=== PATIENT | female | born 1955 | race Caucasian/White ===

== ENCOUNTER 2016-05-30 12:09 | Observation (INO) | payer BC, OTHER ==
--- NOTE | 2016-05-30 13:07 | ED ---
Alcohol HPI - General Chief Complaint: Alcohol Stated Complaint: ETOH Time Seen by Provider: 05/30/16 12:52 Source: patient, family Mode of arrival: ambulatory Limitations: no limitations - History of Present Illness Initial Comments: 61-year-old female patient is brought to emergency department today by her daughter for alcohol intoxication. Patient states that her daughter is concerned because she has been drinking more heavily since . Patient states she has a history of alcohol dependence, but went through treatment about a year ago at [facility]. Patient states that she has increased her drinking because she is upset about her daughter's relationship, and believes her daughter is being manipulated by her boyfriend. Patient denies any suicidal or homicidal ideation. She denies any illicit drug use. Eyes any physical symptoms. She denies headache, dizziness, weakness, chest pain, back pain, abdominal pain, nausea, vomiting, constipation, diarrhea, hematuria, dysuria, urinary urgency or frequency. Patient refuses labs and IV fluids at this time. She does not feel that she needs to be seen and would like to go home. - Related Data Home Medications Medication Instructions Recorded Confirmed Acetaminophen [Tylenol] 325 mg PO Q4H 05/30/16 05/30/16 Multivitamins, Thera [Multivitamin 1 tab PO DAILY 05/30/16 05/30/16 (formulary)] Allergies Allergy/AdvReac Type Severity Reaction Status Date / Time meperidine [From Demerol] Allergy Nausea Verified 05/30/16 13:24 Review of Systems ROS Statement: Those systems with pertinent positive or pertinent negative responses have been documented in the HPI. ROS Other: All systems not noted in ROS Statement are negative. Past Medical History Past Medical History: No Reported History History of Any Multi-Drug Resistant Organisms: None Reported Past Surgical History: No Surgical Hx Reported Past Psychological History: Anxiety, Bipolar, Depression, Panic Disorder Smoking Status: Current every day smoker Past Alcohol Use History: Abuse, Daily, Heavy Past Drug Use History: None Reported General Exam Limitations: no limitations General appearance: alert, in no apparent distress Eye exam: Present: normal appearance, PERRL, EOMI. Absent: scleral icterus, conjunctival injection, periorbital swelling ENT exam: Present: normal exam, normal oropharynx, mucous membranes moist Neck exam: Present: normal inspection. Absent: tenderness, meningismus, lymphadenopathy Respiratory exam: Present: normal lung sounds bilaterally. Absent: respiratory distress, wheezes, rales, rhonchi, stridor Cardiovascular Exam: Present: regular rate, normal rhythm, normal heart sounds. Absent: systolic murmur, diastolic murmur, rubs, gallop, clicks GI/Abdominal exam: Present: soft, normal bowel sounds. Absent: distended, tenderness, guarding, rebound, rigid Extremities exam: Present: normal inspection, full ROM, normal capillary refill. Absent: tenderness, pedal edema, joint swelling, calf tenderness Back exam: Present: normal inspection Neurological exam: Present: alert, oriented X3, CN II-XII intact Psychiatric exam: Present: normal affect, normal mood Skin exam: Present: warm, dry, intact, normal color. Absent: rash Course Vital Signs 05/30/16 12:12 Temperature 97.9 F Pulse Rate 102 H Respiratory 18 Rate Blood Pressure 141/85 O2 Sat by Pulse 95 Oximetry - Reevaluation(s) Reevaluation #1: 05/30/16 13:23 Did speak to patient's daughter on the phone who refuses to come and the patient up until she is sober. We'll perform labs and hydrate patient with banana bag. Medical Decision Making - Lab Data Result diagrams: 05/30/16 13:39 05/30/16 13:39 Lab Results 05/30/16 05/30/16 Range/Units 13:39 13:39 WBC 5.6 (3.8-10.6) k/uL RBC 5.33 (3.80-5.40) m/uL Hgb 15.9 (11.4-16.0) gm/dL Hct 47.4 H (34.0-46.0) % MCV 89.1 (80.0-100.0) fL MCH 29.8 (25.0-35.0) pg MCHC 33.4 (31.0-37.0) g/dL RDW 13.5 (11.5-15.5) % Plt Count 211 (150-450) k/uL Neutrophils % (Manual) 50.0 % Lymphocytes % (Manual) 37.0 % Monocytes % (Manual) 10.0 % Eosinophils % (Manual) 3.0 % Neutrophils # (Manual) 2.8 (1.3-7.7) k/uL Lymphocytes # (Manual) 2.1 (1.0-4.8) k/uL Monocytes # (Manual) 0.6 (0-1.0) k/uL Eosinophils # (Manual) 0.2 (0-0.7) k/uL Nucleated RBCs 0 (0-0) /100 WBC Manual Slide Review Performed RBC Morphology Normal Sodium 146 H (137-145) mmol/L Potassium 4.1 (3.5-5.1) mmol/L Chloride 105 (98-107) mmol/L Carbon Dioxide 27 (22-30) mmol/L Anion Gap 14 mmol/L BUN 9 (7-17) mg/dL Creatinine 0.70 (0.52-1.04) mg/dL Est GFR (MDRD) Af Amer >60 (>60 ml/min/1.73 sqM) Est GFR (MDRD) Non-Af >60 (>60 ml/min/1.73 sqM) Glucose 100 H (74-99) mg/dL Calcium 9.2 (8.4-10.2) mg/dL Magnesium 1.8 (1.6-2.3) mg/dL Total Bilirubin 1.1 (0.2-1.3) mg/dL AST 83 H (14-36) U/L ALT 57 H (9-52) U/L Alkaline Phosphatase 105 (38-126) U/L Total Protein 8.1 (6.3-8.2) g/dL Albumin 4.6 (3.5-5.0) g/dL Amylase 89 (30-110) U/L Lipase 107 (23-300) U/L Serum Alcohol 349 mg/dL Disposition Clinical Impression: Alcohol intoxication, Alcohol abuse Disposition: ADMITTED IP TO THIS HOSP Condition: Stable Time of Disposition: 14:53
[2016-05-30] MEDS ORDERED: SODIUM CHLORIDE 0.9% 1,000 ML with MVI, ADULT NO.4 WITH VIT K 10 ML, THIAMINE 100 MG, F... IV ONE ×8 (13:23→14:00)
[2016-05-30 14:06] LABS: Aty Lym Flag Slight; CH 30.1; CHCM 33.9; HCT 47.4 % (34.0-46.0); HDW 2.27; HGB 15.9 gm/dL (11.4-16.0); MCH 29.8 pg (25.0-35.0); MCHC 33.4 g/dL (31.0-37.0); MCV 89.1 fL (80.0-100.0); Mean Platelet Volume 6.8; RBC 5.33 m/uL (3.80-5.40); RDW 13.5 % (11.5-15.5); WBC 5.6 k/uL (3.8-10.6); WBC (Perox) 5.76
[2016-05-30 14:07] LABS: ALT 57 U/L (9-52); AST 83 U/L (14-36); Alkaline Phosphatase 105 U/L (38-126); Amylase 89 U/L (30-110); Anion Gap 14 mmol/L; Blood Urea Nitrogen 9 mg/dL (7-17); Calcium 9.2 mg/dL (8.4-10.2); Carbon Dioxide 27 mmol/L (22-30); Chloride 105 mmol/L (98-107); Glucose 100 mg/dL (74-99); Magnesium 1.8 mg/dL (1.6-2.3); Non-African American GFR(MDRD) >60 (>60 ml/min/1.73 sqM); Potassium 4.1 mmol/L (3.5-5.1); Sodium 146 mmol/L (137-145); Total Bilirubin 1.1 mg/dL (0.2-1.3); Total Protein 8.1 g/dL (6.3-8.2)
[2016-05-30 14:20] LABS: Alcohol 349 mg/dL
[2016-05-30 14:32] LABS: Add Differential Manual Differential
[2016-05-30 14:33] LABS: Manual Review Performed; Nucleated Red Blood Cells 0 /100 WBC (0-0); Total Cells Counted 100
[2016-05-30 14:34] LABS: RBC Morphology Normal
[2016-05-30] MEDS ORDERED: LORazepam 2 MG/ML SYRINGE IV PRN ×3 (14:53)
[2016-05-30] MEDS ORDERED: ONDANSETRON 4 MG/2 ML VIAL IVP PRN (14:57)
[2016-05-30] MEDS ORDERED: NALOXONE 0.4 MG/ML 1 ML VIAL IV PRN (14:57)
[2016-05-30] MEDS ORDERED: IBUPROFEN 400 MG TAB PO PRN (14:57)
[2016-05-30] MEDS ORDERED: ACETAMINOPHEN TAB 325 MG TAB PO PRN (14:57)
[2016-05-30 15:00] LABS: Appearance,Urine Clear (Clear); Bacteria,Urine Rare /hpf; Bilirubin,Urine Negative (Negative); Glucose,Urine (UA) Negative (Negative); Ketones,Urine Negative (Negative); Leukocyte Esterase,Urine Negative (Negative); Mucus,Urine Rare /hpf; Nitrite,Urine Negative (Negative); PH, Urine 5.5 (5.0-8.0); Particle Count 2258; Protein,Urine Trace (Negative); RBC,Urine <1 /hpf (0-5); Specific Gravity,Urine 1.005 (1.001-1.035); Squamous Epithelial Cell,Urine <1 /hpf (0-4); UA Billing (MACRO vs. MICRO) MICRO; Urobilinogen,Urine <2.0 mg/dL (<2.0); WBC,Urine 1 /hpf (0-5)
[2016-05-30] MEDS ORDERED: NICOTINE 21MG/24HR PATCH TRANSDERM STA (15:07)
[2016-05-30 16:05] VITALS: BMI 23.6
[2016-05-30] MEDS ORDERED: THIAMINE 100 MG TAB PO SCH (17:00)
--- NOTE | 2016-05-30 18:34 | P.HPIM ---
History of Present Illness H&P Date: 05/30/16 Chief Complaint: Alcohol intoxication This is a 7-year-old female one of Dr. Richardson with no prior medical history except for chronic alcohol use and dependence as well as and chronic tobacco use and dependence, patient has been struggling with alcoholism for quite some time as a matter fact she was at [facility] for rehabilitation about a month ago however she started back again and had a few shots of vodka yesterday, patient came to the emergency department at [facility] and she was found to have an alcohol level of 349, she was doing fine patient is awake alert today however she is not call intoxication and her daughter did not take her home subsequently the patient was kept in the hospital overnight as an observation and to her alcohol level is low so she can be discharged and follow up with her primary care physician as an outpatient. She was placed on CIWA protocol and banana bag. Review of Systems Constitutional: Denies anorexia, Denies chills, Denies chronic headaches, Denies lethargy, Denies malaise, Denies weight gain, Denies weight loss Eyes: denies blurred vision, denies bulging eye, denies decreased vision Ears: deny: decreased hearing Ears, nose, mouth and throat: Denies dysphagia, Denies neck lump, Denies swelling in throat, Denies sore throat Cardiovascular: Denies chest pain, Denies decreased exercise tolerance, Denies dyspnea on exertion, Denies high blood pressure, Denies irregular heart beat, Denies paroxysmal nocturnal dyspnea, Denies rapid heart beat, Denies shortness of breath Respiratory: Denies congestion, Denies cough with sputum, Denies home oxygen, Denies sleep apnea, Denies snoring, Denies wheezing Gastrointestinal: Denies abdominal pain, Denies belching, Denies BRBPR, Denies change in bowel habits, Denies heartburn, Denies melena, Denies nausea, Denies vomiting Genitourinary: Denies dysuria, Denies hematuria Menstruation: Reports postmenopausal Musculoskeletal: Denies myalgias Musculoskeletal: absent: ankle pain, ankle stiffness, ankle swelling, elbow pain , elbow stiffness, elbow swelling, foot pain, foot stiffness, foot swelling, hand pain, hand stiffness, hand swelling, hip pain, hip stiffness, hip swelling , knee pain, knee stiffness, knee swelling, shoulder pain, shoulder stiffness, shoulder swelling, wrist pain, wrist stiffness, wrist swelling Integumentary: Denies pruritus, Denies rash Neurological: Denies numbness, Denies weakness Psychiatric: Denies anxiety, Denies depression Endocrine: Denies fatigue, Denies weight change Past Medical History Past Medical History: No Reported History Additional Past Medical History / Comment(s): Chronic alcohol use and dependence with chronic tobacco use and dependence. History of Any Multi-Drug Resistant Organisms: None Reported Past Surgical History: No Surgical Hx Reported Additional Past Surgical History / Comment(s): Right arm ORIF due to fracture. Past Anesthesia/Blood Transfusion Reactions: No Reported Reaction Past Psychological History: Anxiety, Bipolar, Depression, Panic Disorder Smoking Status: Current every day smoker (Patient smokes about a pack every day since she was 37-year-old, and she used to drink alcohol since she was in early 30s and she consumed as much as a pint of vodka and she stated that she was at [facility] about a month ago however she recurred.) Past Alcohol Use History: Abuse, Daily, Heavy Past Drug Use History: None Reported - Past Family History Father Family Medical History: Cancer (Father at age of 56 from adenocarcinoma of the lung.) Additional Family Medical History / Comment(s): lung CA Sister(s) Family Medical History: Cancer (2 Sisters one from lung cancer.) Additional Family Medical History / Comment(s): Lung CA Brother(s) Family Medical History: No Reported History (Patient has one brother no major medical problems.) Mother Family Medical History: No Reported History (Mother is 81-year-old no major medical problems.) Daughter(s) Family Medical History: No Reported History (Patient has one daughter 22-year- old no major medical problems) Medications and Allergies Home Medications Medication Instructions Recorded Confirmed Type Acetaminophen [Tylenol] 325 mg PO Q4H 05/30/16 05/30/16 History Multivitamins, Thera [Multivitamin 1 tab PO DAILY 05/30/16 05/30/16 History (formulary)] Allergies Allergy/AdvReac Type Severity Reaction Status Date / Time meperidine [From Demerol] Allergy Nausea Verified 05/30/16 13:24 Physical Exam Vitals: Vital Signs Temp Pulse Resp BP Pulse Ox 05/30/16 15:30 98.7 F 98 16 126/68 95 Intake and Output 05/30/16 05/30/16 05/30/16 06:59 14:59 22:59 Other: Voiding Method Toilet Weight 72.575 kg Patient Weight 05/31/16 06:59 Weight 72.575 kg - Constitutional General appearance: average body habitus, no acute distress - EENT Eyes: anicteric sclerae, EOMI, PERRLA, no ptosis, no scleral icterus, normal appearance ENT: hearing grossly normal, NA/AT, normal oropharynx, no thrush Ears: bilateral: normal - Neck Neck: no lymphadenopathy, normal ROM, no rigidity, no stridor, no thyromegaly Carotids: bilateral: upstroke normal Thyroid: bilateral: normal size - Respiratory Respiratory: bilateral: diminished, negative: dullness, rales, rhonchi, wheezing , prolonged expiration - Cardiovascular Rhythm: regular Heart sounds: normal: S1, S2 Abnormal Heart Sounds: systolic murmur, click (Mitral valve.) - Gastrointestinal General gastrointestinal: normal bowel sounds, soft, no splenomegaly, no tenderness, no umbilical hernia, no ventral hernia - Integumentary Integumentary: normal, normal turgor - Neurologic Neurologic: CNII-XII intact - Musculoskeletal Musculoskeletal: strength equal bilaterally - Psychiatric Psychiatric: A&O x's 3, appropriate affect, intact judgment & insight Results CBC & Chem 7: 05/30/16 13:39 05/30/16 13:39 Thrombosis Risk Factor Assmnt - DVT/VTE Prophylaxis DVT/VTE Prophylaxis: Pharmacologic Prophylaxis ordered, Mechanical Prophylaxis ordered - Choose All That Apply Any of the Below Risk Factors Present?: Yes Each Factor Represents 1 point: Age 41-60 years Thrombosis Risk Factor Assessment Total Risk Factor Score: 1 Thrombosis Risk Factor Assessment Level: Low Risk Assessment and Plan Plan: Assessment and plan: 1. Alcohol intoxication. Patient will be placed on CIWA protocol, then in the back, monitor the patient overnight and discharged the patient home with her alcohol level is unremarkable. 2. Chronic tobacco use and dependence. Smoking cessation and counseling an increased risk of CAD, CVA, and malignancy. 3. Chronic alcohol use and dependence. Follow-up with Dr. Richardson and as well as [facility] as an outpatient. 4. Anxiety and depressive disorder along with panic attack. She will need to be evaluated by psychiatry. 5. DVT prophylaxis. Lovenox 40 mg subcutaneously every 24 hours. 6. GI prophylaxis. Continue PPI. 7. Observation. 8. Patient is full code.
[2016-05-31 03:47] VITALS: RESP 16
[2016-05-31] MEDS ORDERED: PANTOPRAZOLE 40 MG TABLET PO SCH (07:30)
[2016-05-31 07:52] LABS: Basophils % (A) 1 %; CH 30.1; CHCM 34.1; Eosinophils # (A) 0.1 k/uL (0-0.7); Eosinophils % (A) 1 %; HCT 41.5 % (34.0-46.0); HDW 2.33; Luc # (Auto) 0.15; Luc % (Auto) 2; Lymphocytes # (A) 1.7 k/uL (1.0-4.8); Lymphocytes % (A) 27 %; MCHC 33.9 g/dL (31.0-37.0); MCV 88.7 fL (80.0-100.0); Mean Platelet Volume 7.7; Monocytes # (A) 0.3 k/uL (0-1.0); Monocytes % (A) 5 %; Neutrophils % (A) 64 %; RBC 4.68 m/uL (3.80-5.40); RDW 13.2 % (11.5-15.5); WBC 6.2 k/uL (3.8-10.6); WBC (Perox) 6.71
[2016-05-31 08:04] LABS: ALT 45 U/L (9-52); AST 63 U/L (14-36); Alcohol <10 mg/dL; Alkaline Phosphatase 98 U/L (38-126); Anion Gap 8 mmol/L; Blood Urea Nitrogen 10 mg/dL (7-17); Calcium 9.2 mg/dL (8.4-10.2); Carbon Dioxide 30 mmol/L (22-30); Chloride 99 mmol/L (98-107); Glucose 83 mg/dL (74-99); Non-African American GFR(MDRD) >60 (>60 ml/min/1.73 sqM); Sodium 137 mmol/L (137-145); Total Bilirubin 1.9 mg/dL (0.2-1.3); Total Protein 6.8 g/dL (6.3-8.2)
[2016-05-31] MEDS ORDERED: NICOTINE 21MG/24HR PATCH TRANSDERM SCH (09:00)
[2016-05-31] MEDS ORDERED: ENOXAPARIN 40 MG/0.4 ML SYRINGE SQ SCH (09:00)
[2016-05-31 11:28] VITALS: BP 144/81; PULSE 86; TEMP 98.1
[2016-05-31] MEDS ORDERED: MULTIVITAMINS, THERA 1 EACH TAB PO SCH (12:00)
--- NOTE | 2016-05-31 15:33 | P.DS ---
Providers Date of admission: 05/30/16 15:08 Expected date of discharge: 05/31/16 Attending physician: Orquidea Mayfield Primary care physician: Rufino [facility] Hospital Course: This is a 7-year-old female one of Dr. Richardson with no prior medical history except for chronic alcohol use and dependence as well as and chronic tobacco use and dependence, patient has been struggling with alcoholism for quite some time as a matter fact she was at [facility] for rehabilitation about a month ago however she started back again and had a few shots of vodka yesterday, patient came to the emergency department at [facility] and she was found to have an alcohol level of 349, she was doing fine patient is awake alert today however she is not call intoxication and her daughter did not take her home subsequently the patient was kept in the hospital overnight as an observation and to her alcohol level is low so she can be discharged and follow up with her primary care physician as an outpatient. She was placed on CIWA protocol and banana bag. 05/31: Patient is awake and alert today. She is anxious to be discharged home. No new concerns or complaints. Patient has refused nicotine patch. Patient will be discharged home today in stable condition. Discharge diagnoses: 1. Alcohol intoxication. 2. Chronic tobacco use and dependence. 3. Chronic alcohol use and dependence. 4. Anxiety and depressive disorder along with panic attack. Impression and plan of care have been directed as dictated by the signing physician. Marla Zamora nurse practitioner acting as scribe for signing physician. Cc: Dr. Rufino Richardson Patient Condition at Discharge: Good Plan - Discharge Summary Discharge Medication List Acetaminophen [Tylenol] 325 mg PO Q4H 05/30/16 [History] Multivitamins, Thera [Multivitamin (formulary)] 1 tab PO DAILY 05/30/16 [History ] Thiamine [Vitamin B-1] 100 mg PO DAILY tab 05/31/16 [Rx] Follow up Appointment(s)/Referral(s): Rufino Richardson MD [Primary Care Provider] - 1 Week Patient Instructions/Handouts: Alcohol Intoxication (DC) Discharge Disposition: HOME SELF-CARE
== END 2016-05-31 12:21 | disposition home or self-care (01) ==
LOC: EC 12:09 → 3OBS 15:08
PROVIDERS: ADMIT Internal Medicine; ATTEND Internal Medicine
DX: F10.229 Alcohol dependence with intoxication, unspecified (principal); Z79.899 Other long term (current) drug therapy; Z88.5 Allergy status to narcotic agent; F17.200 Nicotine dependence, unspecified, uncomplicated; F32.9 Major depressive disorder, single episode, unspecified; F41.0 Panic disorder [episodic paroxysmal anxiety]; Y90.8 Blood alcohol level of 240 mg/100 ml or more
CPT/HCPCS: 99285 ×2; 96365 ×2; 36415; 80053 ×2; 82150; 83690; 83735; 85025 ×2; 81001; 80320 ×2; G0378 ×2; S4990; J3411; J2405; 96366; 96375

== ENCOUNTER 2023-06-10 04:47 | Inpatient (IN) | payer MEDICARE, OTHER ==
[2023-06-10] MEDS: SODIUM CHLORIDE 0.9% 1,000 ML IV STA ×2 (04:58→08:19)
--- NOTE | 2023-06-10 05:30 | ED ---
General Adult HPI - General Chief complaint: Fall Stated complaint: L hip injury Time Seen by Provider: 06/10/23 04:49 Source: patient, EMS Mode of arrival: EMS Limitations: no limitations - History of Present Illness Initial comments: Patient is a 68-year-old female who was accepted to our hospital as a transfer after a traumatic injury. Patient reports her last memory was binge drinking on Tuesday night, she must of fallen because she did not wake up until afternoon noted she had pain in her left ankle left hip and could not walk. Patient was evaluated outside hospital where she was found to have a medial malleolar fracture, left impacted femoral neck fracture, complicated laceration over the left ear and was noted to be in rhabdomyolysis. Patient was transferred here for management of her multiple traumas and medical comorbiditie s. Upon arrival patient reports she just feels hung over. - Related Data Home Medications Medication Instructions Recorded Confirmed No Known Home Medications 06/10/23 06/10/23 Allergies Allergy/AdvReac Type Severity Reaction Status Date / Time meperidine [From Demerol] AdvReac Nausea Verified 06/10/23 07:30 Review of Systems ROS Statement: Those systems with pertinent positive or pertinent negative responses have been documented in the HPI. ROS Other: All systems not noted in ROS Statement are negative. Past Medical History Past Medical History: No Reported History Additional Past Medical History / Comment(s): Chronic alcohol use and dependence with chronic tobacco use and dependence. History of Any Multi-Drug Resistant Organisms: None Reported Past Surgical History: No Surgical Hx Reported Additional Past Surgical History / Comment(s): Right arm ORIF due to fracture. Past Anesthesia/Blood Transfusion Reactions: No Reported Reaction Past Psychological History: Anxiety, Depression, Panic Disorder Past Alcohol Use History: Abuse, Daily, Heavy Past Drug Use History: None Reported - Past Family History Father Family Medical History: Cancer (Father at age of 56 from adenocarcinoma of the lung.) Additional Family Medical History / Comment(s): lung CA Sister(s) Family Medical History: Cancer (2 Sisters one from lung cancer.) Additional Family Medical History / Comment(s): Lung CA Brother(s) Family Medical History: No Reported History (Patient has one brother no major medical problems.) Mother Family Medical History: No Reported History (Mother is 81-year-old no major medical problems.) Daughter(s) Family Medical History: No Reported History (Patient has one daughter 22-year-old no major medical problems) General Exam - General Exam Comments Initial Comments: Physical Exam GENERAL: Chronically ill-appearing, appears older than stated age HENT: Normocephalic, Atraumatic. Left ear with a laceration that is through and through the helix from the dorsal aspect with near amputation of the top 1 cm of the ear, there is dried blood and necrosing soft tissues. EYES: PERRL, EOMI PULMONARY: Unlabored respirations. No audible rales rhonchi or wheezing was noted. CARDIOVASCULAR: Tachycardic, regular ABDOMEN: Soft and nontender with normal bowel sounds. SKIN: Ear are laceration as noted above : Deferred NEUROLOGIC: Alert and oriented to person and place, uncertain of events of the past 3 days MUSCULOSKELETAL: Left lower extremity in splint, pain with range of motion of left hip PSYCHIATRIC: Normal psychiatric evaluation. Limitations: no limitations Course Vital Signs 06/10/23 06/10/23 04:49 08:11 Temperature 98.2 F 98.0 F Pulse Rate 110 H 99 Respiratory 18 18 Rate Blood Pressure 168/99 152/92 O2 Sat by Pulse 98 96 Oximetry EKG Findings - EKG Comments: EKG Findings:: KG obtained as part of the trauma workup EKG obtained at 6:01 AM, rate is 100 rhythm is sinus tach normal intervals CO 160 QRS 90 QTc [address] elevations or depressions no evidence of ischemia or infarction. Medical Decision Making - Medical Decision Making Was pt. sent in by a medical professional or institution (, PA, LEGISLATIVE ADVOCATE, urgent care, hospital, or alf...) When possible be specific @ -Yes transfer from outside hospital Did you speak to anyone other than the patient for history (EMS, parent, family, police, friend...)? What history was obtained from this source @ -Transferring physician, EMS Did you review nursing and triage notes (agree or disagree)? Why? @ -I reviewed and agree with nursing and triage notes Were old charts reviewed (outside hosp., previous admission, EMS record, old EKG, old radiological studies, urgent care reports/EKG's, alf records)? Report findings @ -Transfer packet and imaging was reviewed Differential Diagnosis (chest pain, altered mental status, abdominal pain women, abdominal pain men, vaginal bleeding, weakness, fever, dyspnea, syncope, headache, dizziness, GI bleed, back pain, seizure, CVA, palpatations, mental health)? @ -Not applicable EKG interpreted by me (3pts min.). @ -As above X-rays interpreted by me (1pt min.). @ -Outside hip x-ray with impacted femoral neck fracture, chest x-ray unr emarkable, CT interpreted by me (1pt min.). @ -CT chest abdomen pelvis ordered due to questionable trauma, there is no free fluid, no free air aside from previously identified left hip fracture no acute findings U/S interpreted by me (1pt. min.). @ -None done What testing was considered but not performed or refused? (CT, X-rays, U/S, labs)? Why? @ -None What meds were considered but not given or refused? Why? @ -None Did you discuss the management of the patient with other professionals (pro fessionals i.e. , PA, LEGISLATIVE ADVOCATE, lab, RT, psych nurse, social security benefits interviewer, machine rug cleaner, teacher, chief science officer, nurse case manager)? Give summary @ -Discussed with orthopedics RADHA Price Discussed with trauma physician Dr. Huff Discussed with ENT Dr. Colon Was smoking cessation discussed for >3mins.? @ -No Was critical care preformed (if so, how long)? @ -No Were there social determinants of health that impacted care today? How? (Homelessness, low income, unemployed, alcoholism, drug addiction, tra nsportation, low edu. Level, literacy, decrease access to med. care, alf, rehab)? @ -Alcoholism Was there de-escalation of care discussed even if they declined (Discuss DNR or withdrawal of care, Hospice)? DNR status @ -No What co-morbidities impacted this encounter? (DM, HTN, Smoking, COPD, CAD, Cancer, CVA, ARF, Chemo, Hep., AIDS, mental health diagnosis, sleep apnea, morbid obesity)? @ -None Was patient admitted / discharged? Hospital course, mention meds given and route, prescriptions, significant lab abnormalities, going to OR and other pertinent info. @ -Admit Patient was accepted from the outside facility, imaging has been completed at the outside facility. Upon arrival patient care was discussed with orthopedics who is willing to be on consult. Patient care was discussed with trauma surgeon who is willing to accept the admission if ENT would be available to evaluate the ear. Patient care discussed with ENT Dr. Colon who will be on consult to evaluate the ear. Medicine physician Dr. Mai notified of consult for medical management of rhabdomyolysis and alcohol addiction. Undiagnosed new problem with uncertain prognosis? @ -Yes Drug Therapy requiring intensive monitoring for toxicity (Heparin, Nitro, Insulin, Cardizem)? @ -No Were any procedures done? @ -No Diagnosis/symptom? @ -Fall at home, rhabdomyolysis, left-sided hip fracture, left ankle fracture, partial amputation of helix of ear Acute, or Chronic, or Acute on Chronic? @ -Acute Uncomplicated (without systemic symptoms) or Complicated (systemic symptoms)? @ -Complicated Side effects of treatment? @ -No Exacerbation, Progression, or Severe Exacerbation? @ -No Poses a threat to life or bodily function? How? (Chest pain, [place], [place], pneumonia, PE, COPD, DKA, ARF, appy, cholecystitis, CVA, Diverticulitis, Homicidal, Suicidal, threat to staff... and all critical care pts) @ -Unlikely - Lab Data Result diagrams: 06/10/23 05:45 06/10/23 05:45 Lab Results 06/10/23 06/10/23 06/10/23 Range/Units 05:40 05:45 05:45 WBC 10.4 (3.8-10.6) k/uL RBC 3.90 (3.80-5.40) m/uL Hgb 11.9 (11.4-16.0) gm/dL Hct 36.6 (34.0-46.0) % MCV 93.9 (80.0-100.0) fL MCH 30.6 (25.0-35.0) pg MCHC 32.6 (31.0-37.0) g/dL RDW 14.3 (11.5-15.5) % Plt Count 259 (150-450) k/uL MPV 8.2 Neutrophils % 81 % Lymphocytes % 13 % Monocytes % 4 % Eosinophils % 1 % Basophils % 0 % Neutrophils # 8.4 H (1.3-7.7) k/uL Lymphocytes # 1.3 (1.0-4.8) k/uL Monocytes # 0.5 (0-1.0) k/uL Eosinophils # 0.1 (0-0.7) k/uL Basophils # 0.0 (0-0.2) k/uL PT 10.3 (10.0-12.5) sec INR 0.9 (<1.2) APTT 24.6 (22.0-30.0) sec Sodium (137-145) mmol/L Potassium (3.5-5.1) mmol/L Chloride (98-107) mmol/L Carbon Dioxide (22-30) mmol/L Anion Gap mmol/L BUN (7-17) mg/dL Creatinine (0.52-1.04) mg/dL Est GFR (CKD-EPI)AfAm (>60 ml/min/1.73 sqM) Est GFR (CKD-EPI)NonAf (>60 ml/min/1.73 sqM) Glucose (74-99) mg/dL Calcium (8.4-10.2) mg/dL Total Bilirubin (0.2-1.3) mg/dL AST (14-36) U/L ALT (4-34) U/L Alkaline Phosphatase (38-126) U/L Creatine Kinase (30-135) U/L Total Protein (6.3-8.2) g/dL Albumin (3.5-5.0) g/dL Serum Alcohol mg/dL Blood Type O Positive Blood Type Recheck O Pos Bld Type Recheck Status No Antibody Screen NEGATIVE Spec Expiration Date 06/13/2023 - 233906/10/23 Range/Units 05:45 WBC (3.8-10.6) k/uL RBC (3.80-5.40) m/uL Hgb (11.4-16.0) gm/dL Hct (34.0-46.0) % MCV (80.0-100.0) fL MCH (25.0-35.0) pg MCHC (31.0-37.0) g/dL RDW (11.5-15.5) % Plt Count (150-450) k/uL MPV Neutrophils % % Lymphocytes % % Monocytes % % Eosinophils % % Basophils % % Neutrophils # (1.3-7.7) k/uL Lymphocytes # (1.0-4.8) k/uL Monocytes # (0-1.0) k/uL Eosinophils # (0-0.7) k/uL Basophils # (0-0.2) k/uL PT (10.0-12.5) sec INR (<1.2) APTT (22.0-30.0) sec Sodium 135 L (137-145) mmol/L Potassium 4.5 (3.5-5.1) mmol/L Chloride 104 (98-107) mmol/L Carbon Dioxide 27 (22-30) mmol/L Anion Gap 4 mmol/L BUN 25 H (7-17) mg/dL Creatinine 0.64 (0.52-1.04) mg/dL Est GFR (CKD-EPI)AfAm >90 (>60 ml/min/1.73 sqM) Est GFR (CKD-EPI)NonAf >90 (>60 ml/min/1.73 sqM) Glucose 107 H (74-99) mg/dL Calcium 8.1 L (8.4-10.2) mg/dL Total Bilirubin 1.3 (0.2-1.3) mg/dL AST 86 H (14-36) U/L ALT 41 H (4-34) U/L Alkaline Phosphatase 111 (38-126) U/L Creatine Kinase 2064 H* (30-135) U/L Total Protein 6.1 L (6.3-8.2) g/dL Albumin 3.3 L (3.5-5.0) g/dL Serum Alcohol <10 mg/dL Blood Type Blood Type Recheck Bld Type Recheck Status Antibody Screen Spec Expiration Date Disposition Clinical Impression: Fracture of femoral neck, left, closed, Rhabdomyolysis, Laceration of ear, Medial malleolar fracture, Alcohol intoxication Disposition: ADMITTED IP TO THIS [facility] Condition: Serious Is patient prescribed a controlled substance at d/c from ED?: No
[2023-06-10 06:08] LABS: Basophils % (A) 0 %; Eosinophils # (A) 0.1 k/uL (0-0.7); Eosinophils % (A) 1 %; HCT 36.6 % (34.0-46.0); HGB 11.9 gm/dL (11.4-16.0); Lymphocytes # (A) 1.3 k/uL (1.0-4.8); Lymphocytes % (A) 13 %; MCH 30.6 pg (25.0-35.0); MCHC 32.6 g/dL (31.0-37.0); MCV 93.9 fL (80.0-100.0); Mean Platelet Volume 8.2; Monocytes # (A) 0.5 k/uL (0-1.0); Monocytes % (A) 4 %; Neutrophils # (A) 8.4 k/uL (1.3-7.7); Neutrophils % (A) 81 %; Platelet Count 259 k/uL (150-450); RDW 14.3 % (11.5-15.5); WBC 10.4 k/uL (3.8-10.6)
[2023-06-10] MEDS ORDERED: NALOXONE 0.4 MG/ML 1 ML VIAL IV PRN (06:30)
[2023-06-10 06:32] LABS: ALT 41 U/L (4-34); AST 86 U/L (14-36); African American GFR (CKD) >90 (>60 ml/min/1.73 sqM); Albumin 3.3 g/dL (3.5-5.0); Alcohol <10 mg/dL; Alkaline Phosphatase 111 U/L (38-126); Anion Gap 4 mmol/L; Blood Urea Nitrogen 25 mg/dL (7-17); Calcium 8.1 mg/dL (8.4-10.2); Carbon Dioxide 27 mmol/L (22-30); Chloride 104 mmol/L (98-107); Glucose 107 mg/dL (74-99); Non-African American GFR(CKD) >90 (>60 ml/min/1.73 sqM); Potassium 4.5 mmol/L (3.5-5.1); Sodium 135 mmol/L (137-145); Total Bilirubin 1.3 mg/dL (0.2-1.3); Total Protein 6.1 g/dL (6.3-8.2)
[2023-06-10 06:46] LABS: INR 0.9 (<1.2); Partial Thromboplastin Time 24.6 sec (22.0-30.0); Prothrombin Time 10.3 sec (10.0-12.5)
[2023-06-10 06:58] LABS: Creatine Kinase 2064 U/L (30-135)
--- NOTE | 2023-06-10 07:46 | CT ---
EXAMINATION TYPE: CT ChestAbdPelvis w con DATE OF EXAM: 06/10/2023 COMPARISON: 06/30/2014 HISTORY: fall CT DLP: 908.2 mGycm CONTRAST: Contrast enhanced Trauma CT of the Chest, Abdomen and Pelvis is performed with IV Contrast, patient i njected with 100 mL of Isovue 300. Chest: LUNGS: There is no evidence for pneumothorax. The lungs are clear and free of focal contusion or ate lectasis. No pleural effusion MEDIASTINUM: Thoracic aorta is of normal caliber without CT evidence to suggest traumatic induced ao rtic injury. No mediastinal fluid or blood. No pericardial fluid or cardia abnormality. HILAR STRUCTURES: No evidence for mass. No hilar adenopathy is appreciated. OTHER: No significant abnormality. OSSEOUS: No displaced osseous fractures identified. CT ABDOMEN AND PELVIS FINDINGS: LIVER/GB: Moderate hepatic steatosis. No focal laceration, contusion or subcapsular hemorrhage. No calcified gallstones. No space occupying hepatic lesion. Biliary tree is of normal caliber. PANCREAS: No evidence for transection. No inflammation. No distinct mass. SPLEEN: No focal laceration, contusion or subcapsular hemorrhage. ADRENALS: No hemorrhage. No nodule. No thickening. KIDNEYS/BLADDER: No focal laceration, contusion or subcapsular hemorrhage. No hydronephrosis. No n ephrolithiasis. No distinct renal mass. Landeros catheter is noted within a decompressed urinary bladde r. BOWEL: Bowel is intact. No evidence for pneumoperitoneum. GENITAL ORGANS: No gross abnormality. LYMPH NODES: No greater than 1cm abdominal or pelvic lymph nodes areappreciated. AORTA: No traumatic aortic injury visualized. OSSEOUS STRUCTURES: Left-sided basi-cervical fracture proximal left femur. OTHER: No evidence for hemoperitoneum. IMPRESSION: 1. No evidence for traumatic injury to the chest. 2. No evidence for traumatic injury to the solid or hollow abdominal visceral. Left femoral neck frac ture. 3. hepatic steatosis.
[2023-06-10] MEDS: SODIUM CHLORIDE 0.9% 1,000 ML IV SCH (08:19)
[2023-06-10] MEDS: ONDANSETRON 4 MG/2 ML VIAL IVP STA (08:31)
--- NOTE | 2023-06-10 09:47 | P.CNOR ---
History of Present Illness - [facility] Consult date: 06/10/23 Consult reason: other (Left femoral neck fracture) History of present illness: patient is a 68-year-old [place] female who was transferred to [facility] from [facility] due to a left hip fracture. Most of my history was obtained from the ER physician's note. apparently the patient was drinking hea vily on Tuesday and woke up on with significant amount of pain in the left hip. She was taken to [facility] for further evaluation, she was determined to have a left femoral neck fracture, a very complicated laceration involving her left ear and questionable fracture of the left ankle, and rhabdomyolysis. Patient was transferred over to our hospital for further medical management. I was contacted by the emergency room staff regarding the patient, I was able to discuss the case and review the images. Patient was admitted under general surgery, internal medicine and our orthopedic group has been consulted. Patient was evaluated in the emergency room today, she is resting in her hospital bed, she has vomited on a few different occasions. She notes most discomfort in her left proximal thigh. She is having minimal left ankle discomfort at this time, there is a posterior splint in place. Patient is a very poor historian with regards to her medical history, she cannot remember the fall specifically that resulted in her left hip fracture. Patient denies any le ft knee pain at this time. She has mild left ankle pain at this time. She denies any right lower extremity symptoms at this time. She denies any bilateral upper extremitypain at this time. She denies any new onset headaches. She denies any loss of bowel or bladder function at this time. Patient denies any previous surgery to the left hip. Patient states that she does live alone, she has a daughter that Does most of the driving for her. Review of Systems Constitutional: Reports as per HPI Past Medical History Past Medical History: No Reported History Additional Past Medical History / Comment(s): Chronic alcohol use and dependence with chronic tobacco use and dependence. History of Any Multi-Drug Resistant Organisms: None Reported Past Surgical History: No Surgical Hx Reported Additional Past Surgical History / Comment(s): Right arm ORIF due to fracture. Past Anesthesia/Blood Transfusion Reactions: No Reported Reaction Past Psychological History: Anxiety, Depression, Panic Disorder Past Alcohol Use History: Abuse, Daily, Heavy Past Drug Use History: None Reported - Past Family History Father Family Medical History: Cancer (Father at age of 56 from adenocarcinoma of the lung.) Additional Family Medical History / Comment(s): lung CA Sister(s) Family Medical History: Cancer (2 Sisters one from lung cancer.) Additional Family Medical History / Comment(s): Lung CA Brother(s) Family Medical History: No Reported History (Patient has one brother no major medical problems.) Mother Family Medical History: No Reported History (Mother is 81-year-old no major medical problems.) Daughter(s) Family Medical History: No Reported History (Patient has one daughter 22-year-old no major medical problems) Medications and Allergies Home Medications Medication Instructions Recorded Confirmed Type No Known Home Medications 06/10/23 06/10/23 History Allergies Allergy/AdvReac Type Severity Reaction Status Date / Time meperidine [From Demerol] AdvReac Nausea Verified 06/10/23 07:30 Physical Examination Left lower extremity: No open lesions or sores are visualized throughout the left lower extremity, there is soft tissue swelling present in the proximal anterior and lateral thigh. Shortening and external rotation of the extremity is noted compared to the contralateral side. Posterior splint is present Tenderness with palpation noted to the proximal thigh, no discomfort surrounding the knee. patient is unable to straight leg raise, logroll maneuver reproduces significant pain patient is able to wiggle the toes with no difficulty calf is soft, no tenderness with palpation sensation is intact both proximal and distal to the splint and to the upper aspect of the leg, skin is warm to touch Results - Labs Labs: Abnormal Lab Results - Last 24 Hours (Table) 06/10/23 06/10/23 Range/Units 05:45 05:45 Neutrophils # 8.4 H (1.3-7.7) k/uL Sodium 135 L (137-145) mmol/L BUN 25 H (7-17) mg/dL Glucose 107 H (74-99) mg/dL Calcium 8.1 L (8.4-10.2) mg/dL AST 86 H (14-36) U/L ALT 41 H (4-34) U/L Creatine Kinase 2064 H* (30-135) U/L Total Protein 6.1 L (6.3-8.2) g/dL Albumin 3.3 L (3.5-5.0) g/dL H & H 06/10/23 Range/Units 05:45 Hgb 11.9 (11.4-16.0) gm/dL Hct 36.6 (34.0-46.0) % Coagulation 06/10/23 Range/Units 05:45 INR 0.9 (<1.2) Result Diagrams: 06/10/23 05:45 06/10/23 05:45 - Diagnostic results Hip x-ray: report reviewed, image reviewed ( AP and lateral views of the left hip were reviewed from [facility], they were in our synapse system. Images demonstrate a displaced left subcapital femur fracture) Ankle/Foot x-ray: report reviewed, image reviewed ( images were reviewed, this to include AP, lateral and oblique of the left ankle. Images demonstrate a old avulsion type fracture from the medial malleolus. There is no malalignment of the mortise joint. No other fractures or dislocations present) Assessment and Plan Assessment: Displaced left subcapital femur fracture Previous left ankle avulsion fracture medial malleolus Status post fall after alcohol intoxication Complex left ear laceration Rhabdomyolysis Other medical comorbidities Plan: I was able to discuss the case, this to include both physical exam findings and imaging studies my attending Dr. Powell. We would like to proceed with surgical intervention, more specifically a direct anterior left total hip arthroplasty for the left femoral neck fracture. Surgery is scheduled for 06/12/2023. Risk and benefits of the procedure were discussed with the patient, this to include but not exclude infection, blood loss, neurovascular injury, blood clot development, pain and stiffness, and adequate healing of bone, need for further surgery. Patient is in good understanding and would like to proceed. Left ankle remains stable at this time, okay to remove posterior splint. ice and elevate for symptomatic relief pain control, recommend combination of oral and IV medication as needed DVT prophylaxis, will begin heparin 5000 units every 12, hold prior to surgery urinary catheter placement monitor for DTs PT/OT evaluation after surgery other medical specialty recommendations appreciated further recommendations to follow Time with Patient: Less than 30
[2023-06-10] MEDS ORDERED: LORazepam 2 MG/ML INJ IV PRN ×3 (11:49)
[2023-06-10] MEDS ORDERED: ACETAMINOPHEN TAB 325 MG TAB PO PRN (12:03)
--- NOTE | 2023-06-10 12:06 | P.GSHP ---
History of Present Illness H&P Date: 06/10/23 CHIEF COMPLAINT: Fall HISTORY OF PRESENT ILLNESS: This is a 68-year-old female who was a transfer from [facility] to [facility] for left hip fracture. Patient is a poor historian. Apparently she had been drinking heavily on Tuesday. Patient reports she must of fallen on Tuesday and woke up on the floor on . She called EMS because she was unable to get up off the floor. Patient does not recall falling. But she could not ambulate on her own. She was found to have a left femoral neck fracture and a complicated laceration involving the left ear and possible fracture of the left ankle and evidence of rhabdomyolysis. Patient admitted to trauma service. Consults have been placed for orthopedic, ENT and medical service. Patient has been vomiting. She denies any abdominal pain. She does complain of leg pain. Patient mildly tachycardic on admission. Mildly elevated blood pressure. PAST MEDICAL HISTORY: See below PAST SURGICAL HISTORY: See below MEDICATIONS: See below ALLERGIES: See below SOCIAL HISTORY: Daily ETOH use REVIEW OF SYSTEMS: CONSTITUTIONAL: Denies fever or chills. HEENT: Denies blurred vision, vision changes, or eye pain. Denies hemoptysis CARDIOVASCULAR: Denies chest pain or pressure. RESPIRATORY: No shortness of breath. GASTROINTESTINAL: See HPI for pertinent findings HEMATOLOGIC: Denies bleeding disorders. GENITOURINARY: Denies any blood in urine or increased urinary frequency. SKIN: Denies pruitis. Denies rash. PHYSICAL EXAM: VITAL SIGNS: Reviewed GENERAL: Well-developed in no acute distress. HEENT: No sclera icterus. Extraocular movements grossly intact. small pupils but equal, round and reactive. Moist buccal mucosa. Head is normocephalic. No nasal drainage. severe laceration of the top of the left ear. ABDOMEN: Soft. Nondistended. nontender NEUROLOGIC: Alert and oriented. Cranial nerves II through XII grossly intact. Extremities: Left leg in splint. Patient is able to wiggle toes on both feet. LABORATORY DATA: WBC 10.4 Hgb 11.9 platelets 259 INR 0.9 Sodium is 135 potassium 4.5 creatinine 0.64 Total bili 1.3 AST 86 ALT 41 Creatinine kinase 2064 Alcohol level less than 10 IMAGING: CT scan chest abdomen and pelvis reports no evidence of traumatic injury of the chest. No evidence of traumatic injury of solid or hollow abdominal visceral. Left femoral neck fracture. Hepatic steatosis. ASSESSMENT: 1. Fall with trauma to left leg and left ear after alcohol intoxication 2. Left femoral neck fracture 3. Complicated left ear laceration 4. Alcohol use disorder, daily alcohol use 5. Rhabdomyolysis with prolonged time on floor 6. Previous left ankle avulsion fracture medial malleolus 7. Vomiting 8. Mildly elevated LFTs. Likely related to hepatic steatosis and alcohol use PLAN: -Consult placed for orthopedic service they are planning to proceed with surgery for the left femoral neck fracture on 06/12/2023 -Consult ENT service regarding complicated left ear laceration -Consult medical service for medical management -Continue antiemetics -Ativan CIWA protocol ordered with thiamine for alcohol withdrawal -Continue IV fluids -Pain management -Repeat CK level, CMP in AM -GI prophylaxis Protonix DVT prophylaxis subcu heparin Physician Wastewater Treatment Operator note has been reviewed by physician. Signing provider agrees with the documented findings, assessment, and plan of care. I have personally seen and examined the patient, reviewed the CERTIFIED PERSONAL CHEF /PAs history, exam and MDM and agree with the assessment and plan as written. Based on total visit time, I have performed more than 50% of the visit. As above: Patient with multiple injuries after fall at home. Appreciate consultants input. Surgery tentatively planned for Tuesday where the left hip and the left ear will be repaired. Continue analgesics. Continue GI and DVT prophylaxis. Will follow. Past Medical History Past Medical History: No Reported History Additional Past Medical History / Comment(s): Chronic alcohol use and dependence with chronic tobacco use and dependence. History of Any Multi-Drug Resistant Organisms: None Reported Past Surgical History: No Surgical Hx Reported Additional Past Surgical History / Comment(s): Right arm ORIF due to fracture. Past Anesthesia/Blood Transfusion Reactions: No Reported Reaction Past Psychological History: Anxiety, Depression, Panic Disorder Past Alcohol Use History: Abuse, Daily, Heavy Past Drug Use History: None Reported - Past Family History Father Family Medical History: Cancer (Father at age of 56 from adenocarcinoma of the lung.) Additional Family Medical History / Comment(s): lung CA Sister(s) Family Medical History: Cancer (2 Sisters one from lung cancer.) Additional Family Medical History / Comment(s): Lung CA Brother(s) Family Medical History: No Reported History (Patient has one brother no major medical problems.) Mother Family Medical History: No Reported History (Mother is 81-year-old no major m edical problems.) Daughter(s) Family Medical History: No Reported History (Patient has one daughter 22-year-old no major medical problems) Medications and Allergies Home Medications Medication Instructions Recorded Confirmed Type No Known Home Medications 06/10/23 06/10/23 History Allergies Allergy/AdvReac Type Severity Reaction Status Date / Time meperidine [From Demerol] AdvReac Nausea Verified 06/10/23 07:30 Surgical - Exam Vital Signs Temp Pulse Resp BP Pulse Ox 98.2 F 110 H 18 168/99 98 06/10/23 04:49 06/10/23 04:49 06/10/23 04:49 06/10/23 04:49 06/10/23 04:49 Patient Seen Date: 06/10/23 Patient Seen Time: 08:30 Results - Labs 06/10/23 05:45 06/10/23 05:45 Abnormal Lab Results - Last 24 Hours (Table) 06/10/23 06/10/23 Range/Units 05:45 05:45 Neutrophils # 8.4 H (1.3-7.7) k/uL Sodium 135 L (137-145) mmol/L BUN 25 H (7-17) mg/dL Glucose 107 H (74-99) mg/dL Calcium 8.1 L (8.4-10.2) mg/dL AST 86 H (14-36) U/L ALT 41 H (4-34) U/L Creatine Kinase 2064 H* (30-135) U/L Total Protein 6.1 L (6.3-8.2) g/dL Albumin 3.3 L (3.5-5.0) g/dL Diabetes panel 06/10/23 Range/Units 05:45 Sodium 135 L (137-145) mmol/L Potassium 4.5 (3.5-5.1) mmol/L Chloride 104 (98-107) mmol/L Carbon Dioxide 27 (22-30) mmol/L BUN 25 H (7-17) mg/dL Creatinine 0.64 (0.52-1.04) mg/dL Glucose 107 H (74-99) mg/dL Calcium 8.1 L (8.4-10.2) mg/dL AST 86 H (14-36) U/L ALT 41 H (4-34) U/L Alkaline Phosphatase 111 (38-126) U/L Total Protein 6.1 L (6.3-8.2) g/dL Albumin 3.3 L (3.5-5.0) g/dL Calcium panel 06/10/23 Range/Units 05:45 Calcium 8.1 L (8.4-10.2) mg/dL Albumin 3.3 L (3.5-5.0) g/dL Pituitary panel 06/10/23 Range/Units 05:45 Sodium 135 L (137-145) mmol/L Potassium 4.5 (3.5-5.1) mmol/L Chloride 104 (98-107) mmol/L Carbon Dioxide 27 (22-30) mmol/L BUN 25 H (7-17) mg/dL Creatinine 0.64 (0.52-1.04) mg/dL Glucose 107 H (74-99) mg/dL Calcium 8.1 L (8.4-10.2) mg/dL Adrenal panel 06/10/23 Range/Units 05:45 Sodium 135 L (137-145) mmol/L Potassium 4.5 (3.5-5.1) mmol/L Chloride 104 (98-107) mmol/L Carbon Dioxide 27 (22-30) mmol/L BUN 25 H (7-17) mg/dL Creatinine 0.64 (0.52-1.04) mg/dL Glucose 107 H (74-99) mg/dL Calcium 8.1 L (8.4-10.2) mg/dL Total Bilirubin 1.3 (0.2-1.3) mg/dL AST 86 H (14-36) U/L ALT 41 H (4-34) U/L Alkaline Phosphatase 111 (38-126) U/L Total Protein 6.1 L (6.3-8.2) g/dL Albumin 3.3 L (3.5-5.0) g/dL
[2023-06-10] MEDS: PANTOPRAZOLE 40 MG/10 ML VIAL IVP SCH (14:39)
[2023-06-10] MEDS: THIAMINE 100 MG/ML 2 ML VIAL IM STA (15:39)
[2023-06-10] MEDS: HYDROcodone/APAP 5-325MG 1 EACH TAB PO PRN (15:40)
--- NOTE | 2023-06-10 15:44 | P.CONS ---
History of Present Illness - Reason for Consult Consult date: 06/10/23 Medical management, fall with left hip and ankle fracture - History of Present Illness This is a 68-year-old female who presented to the emergency department via EMS at another facility and transferred here for traumatic injury. Patient reports she had been drinking heavily and had a fall and was out for approximately 2 days. Patient sent here for further evaluation including multiple traumas with the left hip and ankle fracture. Patient was admitted to general surgery with orthopedics and medicine on consult for medical management. Patient with a past medical history of chronic alcohol use and dependence with continued nicotine dependence, anxiety, depression, panic disorder. Patient reports she follows [facility] Dr. Biswas in the outpatient setting. Patient at an outside facility was noted to have a medial malleolar fracture on the left as well as a left impacted femoral neck fracture with a complicated laceration over the left ear and also acute rhabdomyolysis. CT of the chest abdomen pelvis were done showing no evidence of traumatic injury to the chest or abdominal visceral with a noted left femoral neck fracture and hepatic steatosis EKG showed sinus tachycardia. REVIEW OF SYSTEMS: CONSTITUTIONAL: No fever, no malaise, no fatigue. HEENT: No recent visual problems or hearing problems. Denied any sore throat. CARDIOVASCULAR: No chest pain, orthopnea, PND, no palpitations, no syncope. PULMONARY: No shortness of breath, no cough, no hemoptysis. GASTROINTESTINAL: No diarrhea, no nausea, no vomiting, no abdominal pain. NEUROLOGICAL: No headaches, no weakness, no numbness. HEMATOLOGICAL: Denies any bleeding or petechiae. GENITOURINARY: Denies any burning micturition, frequency, or urgency. MUSCULOSKELETAL/RHEUMATOLOGICAL: Denies any joint pain, swelling, or any muscle pain. ENDOCRINE: Denies any polyuria or polydipsia. The rest of the 14-point review of systems is negative. PHYSICAL EXAMINATION: GENERAL: The patient is alert and oriented x3, not in any acute distress. Well developed, well nourished. HEENT: Pupils are round and equally reacting to light. EOMI. No scleral icterus. No conjunctival pallor. Normocephalic, atraumatic. No pharyngeal erythema. No t hyromegaly. CARDIOVASCULAR: S1 and S2 present. No murmurs, rubs, or gallops. PULMONARY: Chest is clear to auscultation, no wheezing or crackles. ABDOMEN: Soft, nontender, nondistended, normoactive bowel sounds. No palpable organomegaly. MUSCULOSKELETAL: No joint swelling or deformity. EXTREMITIES: No cyanosis, clubbing, or pedal edema. NEUROLOGICAL: Gross neurological examination did not reveal any focal deficits. SKIN: No rashes. Assessment: Acute alcohol intoxication resulting in a fall with a displaced left subcapital femur fracture Recent left ankle avulsion and fracture of the medial malleolus Complex left ear laceration Chronic alcohol abuse Acute rhabdomyolysis from a fall, patient reports she was down almost 2 days Continued ongoing nicotine dependence Elevated LFTs likely secondary to daily alcohol use Plan: Patient admitted under surgery services for trauma and noted to have an impacted left femur fracture scheduled to undergo surgical intervention on Tuesday with orthopedics ENT is consulted and pending for a complicated left ear laceration secondary to the fall continue with wound care and await ENT recommendations Continue with IV hydration and follow-up on repeat labs Strongly encourage CIWA protocol and continued pain management per orthopedics as well as general surgery Continue antiemetics as needed We will continue to follow with surgery during hospitalization. Thank you kindly for this consultation. The impression and plan of care has been dictated by Adriana Hearn, Nurse Practitioner as directed. Dr. Cheyanne MD I have performed a history and examination and MDM of this patient, discussed the same with the dictator, and agree with the dictator's assessment and plan as written ,documented as a scribe. Based on total visit time, I have performed more than 50% of the visit. Past Medical History Past Medical History: No Reported History Additional Past Medical History / Comment(s): Chronic alcohol use and dependence with chronic tobacco use and dependence. History of Any Multi-Drug Resistant Organisms: None Reported Past Surgical History: No Surgical Hx Reported Additional Past Surgical History / Comment(s): Right arm ORIF due to fracture. Past Anesthesia/Blood Transfusion Reactions: No Reported Reaction Past Psychological History: Anxiety, Depression, Panic Disorder Past Alcohol Use History: Abuse, Daily, Heavy Past Drug Use History: None Reported - Past Family History Father Family Medical History: Cancer (Father at age of 56 from adenocarcinoma of the lung.) Additional Family Medical History / Comment(s): lung CA Sister(s) Family Medical History: Cancer (2 Sisters one from lung cancer.) Additional Family Medical History / Comment(s): Lung CA Brother(s) Family Medical History: No Reported History (Patient has one brother no major medical problems.) Mother Family Medical History: No Reported History (Mother is 81-year-old no major medical problems.) Daughter(s) Family Medical History: No Reported History (Patient has one daughter 22-year-old no major medical problems) Medications and Allergies Home Medications Medication Instructions Recorded Confirmed Type No Known Home Medications 06/10/23 06/10/23 History Allergies Allergy/AdvReac Type Severity Reaction Status Date / Time meperidine [From Demerol] AdvReac Nausea Verified 06/10/23 07:30 Physical Exam Vitals: Vital Signs Temp Pulse Pulse Resp BP BP Pulse Ox 06/10/23 08:11 98.0 F 99 18 152/92 96 06/10/23 08:00 98.5 F 97 18 174/97 95 06/10/23 04:49 98.2 F 110 H 18 168/99 98 Intake and Output 06/09/23 06/10/23 06/10/23 22:59 06:59 14:59 Other: Weight 68.039 kg Results CBC & Chem 7: 06/10/23 05:45 06/10/23 05:45 Labs: Abnormal Lab Results - Last 24 Hours (Table) 06/10/23 06/10/23 Range/Units 05:45 05:45 Neutrophils # 8.4 H (1.3-7.7) k/uL Sodium 135 L (137-145) mmol/L BUN 25 H (7-17) mg/dL Glucose 107 H (74-99) mg/dL Calcium 8.1 L (8.4-10.2) mg/dL AST 86 H (14-36) U/L ALT 41 H (4-34) U/L Creatine Kinase 2064 H* (30-135) U/L Total Protein 6.1 L (6.3-8.2) g/dL Albumin 3.3 L (3.5-5.0) g/dL
--- NOTE | 2023-06-10 17:18 | P.GSCN ---
History of Present Illness Consult date: 06/10/23 Reason for Consult: facial and ear trauma Requesting physician: Veronica Biswas History of present illness: This this is a 68-year-old white female who lives alone and last yosef fell at home while smoking pot and intoxicated. She found her phone and called EMS and was taken to [facility] for care. She was then transferred to [facility] for orthopedic and ENT care. She sustained a hip fracture. She also had trauma to the left ear and has a laceration to the left ear. There is a hematoma noted on the left zygoma. Patient is a poor historian and does not have any memory of this incident. She denies any neurologic symptoms other than pain to the left ear and hip Denies any otologic issues other than pain to the left ear.. Denies otorrhea hearing loss etc. Review of Systems - Constitutional Reports as per HPI - EENT Ears, nose, mouth and throat: Reports as per HPI - Cardiovascular Reports as per HPI - Respiratory Reports as per HPI - Gastrointestinal Reports as per HPI - Genitourinary Genitourinary: Reports as per HPI Past Medical History Past Medical History: No Reported History Additional Past Medical History / Comment(s): Chronic alcohol use and dependence with chronic tobacco use and dependence. History of Any Multi-Drug Resistant Organisms: None Reported Past Surgical History: No Surgical Hx Reported Additional Past Surgical History / Comment(s): Right arm ORIF due to fracture. Past Anesthesia/Blood Transfusion Reactions: No Reported Reaction Past Psychological History: Anxiety, Depression, Panic Disorder Past Alcohol Use History: Abuse, Daily, Heavy Past Drug Use History: None Reported - Past Family History Father Family Medical History: Cancer (Father at age of 56 from adenocarcinoma of the lung.) Additional Family Medical History / Comment(s): lung CA Sister(s) Family Medical History: Cancer (2 Sisters one from lung cancer.) Additional Family Medical History / Comment(s): Lung CA Brother(s) Family Medical History: No Reported History (Patient has one brother no major medical problems.) Mother Family Medical History: No Reported History (Mother is 81-year-old no major me dical problems.) Daughter(s) Family Medical History: No Reported History (Patient has one daughter 22-year-old no major medical problems) Medications and Allergies Home Medications Medication Instructions Recorded Confirmed Type Aspirin [Adult Low Dose Aspirin EC] 81 mg PO BID #60 tab 06/16/23 Rx Docusate [Colace] 100 mg PO BID #30 capsule 06/16/23 Rx HYDROcodone/APAP 7.5-325MG [[place] 1 each PO Q6HR PRN #28 tab 06/16/23 Rx 7.5] Allergies Allergy/AdvReac Type Severity Reaction Status Date / Time meperidine [From Demerol] AdvReac Nausea Verified 06/10/23 07:30 Surgical - Exam Osteopathic Statement: *. No significant issues noted on an osteopathic structural exam other than those noted in the History and Physical/Consult. Vital Signs Temp Pulse Resp BP Pulse Ox 98.2 F 110 H 18 168/99 98 06/10/23 04:49 06/10/23 04:49 06/10/23 04:49 06/10/23 04:49 06/10/23 04:49 - General well developed, well nourished, no distress - Eyes PERRL, normal ocular movement - ENT Patient has a laceration through the left ear just below the antihelical fold through the pars triangularis. This is a transection laceration through the pars triangularis. . no normal pinna, normal nares, normal mucosa, no hearing loss, no congestion - Neck no masses, no lymphadectomy - Respiratory normal expansion - Integumentary no rash - Neurologic normal coordination - Musculoskeletal normal gait - Psychiatric oriented to time, oriented to person, oriented to place, speech is normal Results - Labs 06/15/23 04:50 06/16/23 04:32 Abnormal Lab Results - Last 24 Hours (Table) 06/10/23 06/10/23 Range/Units 05:45 05:45 Neutrophils # 8.4 H (1.3-7.7) k/uL Sodium 135 L (137-145) mmol/L BUN 25 H (7-17) mg/dL Glucose 107 H (74-99) mg/dL Calcium 8.1 L (8.4-10.2) mg/dL AST 86 H (14-36) U/L ALT 41 H (4-34) U/L Creatine Kinase 2064 H* (30-135) U/L Total Protein 6.1 L (6.3-8.2) g/dL Albumin 3.3 L (3.5-5.0) g/dL Diabetes panel 06/10/23 Range/Units 05:45 Sodium 135 L (137-145) mmol/L Potassium 4.5 (3.5-5.1) mmol/L Chloride 104 (98-107) mmol/L Carbon Dioxide 27 (22-30) mmol/L BUN 25 H (7-17) mg/dL Creatinine 0.64 (0.52-1.04) mg/dL Glucose 107 H (74-99) mg/dL Calcium 8.1 L (8.4-10.2) mg/dL AST 86 H (14-36) U/L ALT 41 H (4-34) U/L Alkaline Phosphatase 111 (38-126) U/L Total Protein 6.1 L (6.3-8.2) g/dL Albumin 3.3 L (3.5-5.0) g/dL Calcium panel 06/10/23 Range/Units 05:45 Calcium 8.1 L (8.4-10.2) mg/dL Albumin 3.3 L (3.5-5.0) g/dL Pituitary panel 06/10/23 Range/Units 05:45 Sodium 135 L (137-145) mmol/L Potassium 4.5 (3.5-5.1) mmol/L Chloride 104 (98-107) mmol/L Carbon Dioxide 27 (22-30) mmol/L BUN 25 H (7-17) mg/dL Creatinine 0.64 (0.52-1.04) mg/dL Glucose 107 H (74-99) mg/dL Calcium 8.1 L (8.4-10.2) mg/dL Adrenal panel 06/10/23 Range/Units 05:45 Sodium 135 L (137-145) mmol/L Potassium 4.5 (3.5-5.1) mmol/L Chloride 104 (98-107) mmol/L Carbon Dioxide 27 (22-30) mmol/L BUN 25 H (7-17) mg/dL Creatinine 0.64 (0.52-1.04) mg/dL Glucose 107 H (74-99) mg/dL Calcium 8.1 L (8.4-10.2) mg/dL Total Bilirubin 1.3 (0.2-1.3) mg/dL AST 86 H (14-36) U/L ALT 41 H (4-34) U/L Alkaline Phosphatase 111 (38-126) U/L Total Protein 6.1 L (6.3-8.2) g/dL Albumin 3.3 L (3.5-5.0) g/dL Assessment and Plan Plan: Patient has a transection to the left ear and this laceration needs to be repaired. It is already 4 days old and I am recommending a debridement of the edges along with repair. All risks, benefits, and alternative therapies were discussed in detail along with repair. Consent was obtained and all questions were answered. Time with Patient: Greater than 30
[2023-06-10] MEDS: HYDROmorphone 0.5 MG/0.5 ML SYRINGE IVP PRN (20:19)
[2023-06-10] MEDS: HEPARIN SODIUM,PORCINE 5,000 UNIT/ML 1 ML VIAL SQ SCH (20:20)
[2023-06-10] MEDS: ONDANSETRON 4 MG/2 ML VIAL IVP PRN (20:20)
--- NOTE | 2023-06-11 00:36 | US ---
EXAMINATION TYPE: US carotid duplex BILAT DATE OF EXAM: 06/10/2023 COMPARISON: NONE CLINICAL INDICATION: Female, 68 years old with history of Syncope; TECHNIQUE: Carotid duplex ultrasound examination. Indirect Doppler criteria was utilized. FINDINGS: EXAM MEASUREMENTS: RIGHT: Peak Systolic Velocity (PSV) cm/sec ----- Right CCA: 111.3 ----- Right ICA: 117.7 ----- Right ECA: 289.7 ICA/CCA ratio: 1.1 RIGHT: End Diastole cm/sec ----- Right CCA: 19.2 ----- Right ICA: 28.9 ----- Right ECA: 24.6 LEFT: Peak Systolic Velocity (PSV) cm/sec ----- Left CCA: 86.4 ----- Left ICA: 95.6 ----- Left ECA: 153.6 ICA/CCA ratio: 1.1 LEFT: End Diastole cm/sec ----- Left CCA: 18.2 ----- Left ICA: 24.5 ----- Left ECA: 5.7 VERTEBRALS (direction of flow): Right Vertebral: Antegrade Left Vertebral: Antegrade Rhythm: Normal [employer] OPERATOR NOTES: Plaque bilateral bulbs. Elevated bilateral ECA velocities. Moderate peripheral plaque bilateral carotid bulb level. No abnormal increased ratios or increased ve locities bilateral internal carotid arteries IMPRESSION: Moderate atherosclerotic changes without hemodynamically significant stenosis in either internal carotid artery. Criteria for Assigning % of Stenosis / Diameter reduction (Estimation based on the indirect measurements of the internal carotid artery velocities (ICA PSV). 1. Normal (no stenosis)=ICA PSV < 125 cm/s: ratio < 2.0: ICA EDV<40 cm/s. 2. Less than 50% stenosis=ICA PSV < 125 cm/s: ratio < 2.0: ICA EDV<40 cm/s. 3. 50 to 69% stenosis=ICA PSV of 125 to 230 cm/s: ration 2.0 ? 4.0: ICA EDV 40-100 cm/s. 4. Greater than 70% stenosis to near occlusion= ICA PSV > 230 cm/s: ratio > 4.0: ICA EDV > 100 cm/s. 5. Near occlusion= ICA PSV velocities may be low or undetectable: variable ratio and ICA EDV. 6. Total occlusion=unable to detect flow.
--- NOTE | 2023-06-11 07:30 | P.CNNES ---
History of Present Illness Consult date: 06/10/23 Requesting physician: Ree Tripp Reason for Consult: trauma, fall, doesn't remember event History of Present Illness: Patient is a 68-year-old left-handed female with history of alcoholism, who was transferred from [facility], and arrived here early this morning at 4:47 AM, for orthopedic evaluation for hip fracture, as orthopedic surgery service not available in that hospital. Patient states that she fell on 06/07/2023, but she does not remember how she fell. Patient states that she drank about 3-4 drinks of whiskey with water, which was too much and she blacked out. When she woke up, she felt that she was in a dream, and she was on the floor. She was in a lot of pain in the hip region. She was very scared that her hip may have broken, therefore she did not call 911, as she st ates that she felt very "embarrassed". She stayed on the floor for couple days, and she would scoot herself to get water and some abdoulaye garett. She could not make it to the bathroom and would pee on herself. She lives by herself. She does have a daughter, who checks on her every couple days, but she did not try to contact patient in these 2 days. As the pain became unbearable, she called 911, and she was taken to [facility]. She was diagnosed with left hip fracture, and was transferred to [facility] for orthopedic evaluation for possible surgery. Neurology was consulted because patient does not remember details about the fall with loss of consciousness. Patient did not bite her tongue, but didn't lose control of urine when she woke up on the floor. She denies any previous history of seizures. Patient is a light smoker, smokes about quarter to half pack per day for 30 years. She also drinks about 1 pint over 2 days, about once or twice a week. She states that sometime she would not drink 4 months or week at a time. Vital signs on arrival blood pressure 168/99, pulse 110, temperature 98.2. Patient CBC is normal, PT/PTT normal. Sodium 135 potassium is normal renal functions normal. AST 86, ALT 41. CK is 2064. Blood alcohol level negative. EKG showed sinus tachycardia. CT of the chest abdomen and pelvis showed no evidence of traumatic injury to the chest. No evidence for traumatic injury to the solid or follow abdominal viscera. Left femoral neck fracture. Hepatic steatosis. Outside records: Left ankle x-ray showed age-indeterminate minimally displaced fracture of the left inferior medial malleolus. X-ray of bilateral hips revealed acute impacted fracture of the neck of the femur. Does not say which side although the pain is in the left side. Chest x-ray showed no thoracic injury. CT of the cervical spine revealed no evidence of fracture or subluxation. Degenerative changes as described above. CT of the maxillofacial bones showed no fracture. CT scan of the head 06/10/2023 at 1:16 AM showed no evidence of intracranial hemorrhage, midline shift or calvarial fracture. Periventricular chronic small vessel ischemia and volume loss. Patient's PTT is normal. Blood alcohol level less than 10. CMP with sodium 133 potassium 3.8, normal renal functions, AST 90, normal ALT 51. CBC with WBC 13.6, hemoglobin 13.0 with MCV 91. Platelets 304 Patient presented after a fall. Patient admits to drinking alcohol on 06/07/2023, 3 days prior to arrival. She does not remember anything after that until she woke up in the evening and called EMS. She states she must have fallen on her left side. She was complaining of left-sided head pain, left hip and left ankle pain. There was a large laceration on top of her left ear. Patient does not remember when or how she fell. Patient denies drinking daily, but states on Tuesday she drank "a lot". Review of Systems Constitutional: Denies chills, Denies fever (hot and cold), Denies sweats Eyes: denies blurred vision, denies diplopia, denies pain, denies loss of vision Ears: deny: decreased hearing, ear discharge Ears, nose, mouth and throat: Denies headache, Denies sore throat, Denies vertigo Cardiovascular: Denies chest pain, Denies shortness of breath Respiratory: Reports cough, Denies excessive sputum Gastrointestinal: Reports nausea, Reports vomiting, Denies abdominal pain, Denies diarrhea Genitourinary: Reports as per HPI, Denies dysuria, Denies hematuria Musculoskeletal: Denies low back pain, Denies neck pain Musculoskeletal: left: ankle pain, hip pain Integumentary: Denies pruritus, Denies rash Neurological: Reports as per HPI Psychiatric: Reports anxiety, Reports depression Endocrine: Reports fatigue, Denies weight change Hematologic/Lymphatic: Denies easy bleeding, Denies easy bruising Past Medical History Past Medical History: No Reported History Additional Past Medical History / Comment(s): Chronic alcohol use and dependence with chronic tobacco use and dependence. History of Any Multi-Drug Resistant Organisms: None Reported Past Surgical History: No Surgical Hx Reported Additional Past Surgical History / Comment(s): Right arm ORIF due to fracture. Past Anesthesia/Blood Transfusion Reactions: No Reported Reaction Past Psychological History: Anxiety, Depression, Panic Disorder Past Alcohol Use History: Abuse, Daily, Heavy Past Drug Use History: None Reported - Past Family History Father Family Medical History: Cancer (Father at age of 56 from adenocarcinoma of the lung.) Additional Family Medical History / Comment(s): lung CA Sister(s) Family Medical History: Cancer (2 Sisters one from lung cancer.) Additional Family Medical History / Comment(s): Lung CA Brother(s) Family Medical History: No Reported History (Patient has one brother no major medical problems.) Mother Family Medical History: No Reported History (Mother is 81-year-old no major medical problems.) Daughter(s) Family Medical History: No Reported History (Patient has one daughter 22-year-old no major medical problems) Medications and Allergies Home Medications Medication Instructions Recorded Confirmed Type No Known Home Medications 06/10/23 06/10/23 History Allergies Allergy/AdvReac Type Severity Reaction Status Date / Time meperidine [From Demerol] AdvReac Nausea Verified 06/10/23 07:30 Physical Examination - Vital Signs Vital Signs: Vital Signs Temp Pulse Pulse Resp BP BP Pulse Ox 06/10/23 14:00 98.6 F 94 17 137/76 96 06/10/23 08:11 98.0 F 99 18 152/92 96 06/10/23 08:00 98.5 F 97 18 174/97 95 06/10/23 04:49 98.2 F 110 H 18 168/99 98 Intake and Output 06/10/23 06/10/23 06/10/23 06:59 14:59 22:59 Other: Weight 68.039 kg Patient is an elderly female, in no acute distress. Patient is alert awake oriented to time place and person. Patient knows it is June 2023 and that she is in [facility] in [place] and name of the current president. Speech and language functions are normal. Patient can name and repeat very well. No aphasia or dysarthria. Attention, concentration and fund of knowledge is adequate. On cranial nerve examination, pupils are equal, round and reacting to light, visual li are full on confrontation, with no neglect on double simultaneous stimulation. Extraocular muscles are intact with no nystagmus. Face is symmetric, tongue protrudes to the midline. Palatal elevation and sensation normal, hearing and shoulder shrug normal, facial sensation normal. On muscle strength testing, there is no pronator drift and the strength is normal in arms distally and proximally. In the lower limbs, her right leg is normal. Left ankle is normal. Left hip not checked because of recent fracture. Deep tendon reflexes are symmetric biceps 2, brachioradialis 2, right knee 2, right ankle 1 and plantars downgoing bilaterally. Sensory to touch is equal with no neglect on double simultaneous stimulation. Cerebellar function showed no ataxia for [id number] testing. No dysdiadochokinesia. Legs not checked because of left hip fracture. Tone and bulk of muscles normal. Gait deferred.. On general examination, there is no carotid bruit or murmur, S1-S2 audible. Chest is clear on consultation. Abdomen is soft nontender. No organomegaly, bowel sounds present. Peripheral pulses are present. No peripheral edema. Results - Laboratory Findings CBC and BMP: 06/10/23 05:45 06/10/23 05:45 Abnormal Lab Findings: Abnormal Labs 06/10/23 06/10/23 05:45 05:45 Neutrophils # 8.4 H Sodium 135 L BUN 25 H Glucose 107 H Calcium 8.1 L AST 86 H ALT 41 H Creatine Kinase 2064 H* Total Protein 6.1 L Albumin 3.3 L Assessment and Plan Assessment: * Status post unwitnessed fall with loss of consciousness. Patient states that she was drinking alcohol and blacked out and woke up on the floor. Rule out alcoholic blackout versus withdrawal seizure. Patient voluntarily did not call ambulance and stayed home for couple days before calling the ambulance. * Left hip fracture due to fall. * Transection of the left ear due to the fall. * Elevated blood pressures, possible hypertension. * Alcoholism * Tobacco use Plan: * Patient will undergo EEG to rule out any epileptiform activity. * Carotid Doppler was ordered. It revealed moderate atherosclerotic changes without hemodynamically significant stenosis in either ICA. Antegrade flow in both vertebral arteries. * Thiamine, folate, multivitamins. Watch for alcohol withdrawal. * Patient to undergo left hip surgery and left ear repair on 06/12/2023. * Patient counseled about abstinence from alcohol and tobacco use. * Patient informed of [place] state law of no driving unless free of syncopal spells/seizures for 6 months. She should avoid climbing ladders, operating dangerous machineries or unsupervised swimming. * Urine drug screen. * We will follow. Thank you for the consult.
--- NOTE | 2023-06-11 07:37 | P.PN ---
Subjective Progress Note Date: 06/11/23 Principal diagnosis: left femoral neck fracture patient examined today at bedside, she is resting comfortably. She is still doing a lot of pain in her left hip, she is having no pain in the left ankle at this time. Patient is scheduled for a direct anterior total hip replacement on 06/12/2023. She has been evaluated by ENT, they plan for repair of her left ear at the time of surgery tomorrow. Patient will be n.p.o. after midnight tonight. Objective - Vital Signs Vital signs: Vital Signs Temp 98.0 F 06/11/23 07:27 Pulse 84 06/11/23 07:27 Resp 17 06/11/23 07:27 BP 156/70 06/11/23 07:27 Pulse Ox 96 06/11/23 07:27 FiO2 Intake & Output 06/10/23 06/11/23 06/11/23 18:59 06:59 18:59 Intake Total 1560 Output Total 775 575 Balance -775 985 Weight 68.039 kg Intake: Intake, IV Titration 1560 Amount Sodium Chloride 0.9% 1, 1560 000 ml @ 130 mls/hr IV . Q7H42M [facility] Rx#:[id number] Output: Urine 775 575 Other: Voiding Method Indwelling Catheter Indwelling Catheter - Exam Left lower extremity: No open lesions or sores are visualized throughout the left lower extremity, there is soft tissue swelling present in the proximal anterior and lateral thigh. Shortening and external rotation of the extremity is noted compared to the contralateral side. Tenderness with palpation noted to the proximal thigh, no discomfort surrounding the knee. patient is unable to straight leg raise, logroll maneuver reproduces significant pain patient is able to wiggle the toes with no difficulty calf is soft, no tenderness with palpation sensation is intact both proximal and distal to the splint and to the upper aspect of the leg, skin is warm to touch - Labs CBC & Chem 7: 06/10/23 05:45 06/10/23 05:45 Assessment and Plan Assessment: Displaced left subcapital femur fracture Previous left ankle avulsion fracture medial malleolus Status post fall after alcohol intoxication Complex left ear laceration Rhabdomyolysis Other medical comorbidities Plan: Surgery scheduled for 06/12/2023 n.p.o. after midnight pain control, recommend combination of oral and IV medication as needed DVT prophylaxis, will begin heparin 5000 units every 12, hold prior to surgery urinary catheter placement monitor for DTs PT/OT evaluation after surgery other medical specialty recommendations appreciated further recommendations to follow Time with Patient: Less than 30
[2023-06-11] MEDS: FOLIC ACID 1 MG TAB PO SCH (08:22)
[2023-06-11] MEDS: THIAMINE 100 MG TAB PO SCH (08:22)
[2023-06-11 09:51] LABS: ALT 32 U/L (8-44); AST 68 U/L (13-35); Albumin 3.3 g/dL (3.8-4.9); Alkaline Phosphatase 104 U/L (41-126); BUN/Creat Ratio 24.14 Ratio (12.00-20.00); Blood Urea Nitrogen 16.9 mg/dL (9.0-27.0); Calcium 8.8 mg/dL (8.7-10.3); Chloride 102 mmol/L (96-109); Globulin 2.2 g/dL (1.6-3.3); Glucose 76 mg/dL (70-110); Potassium 3.9 mmol/L (3.5-5.5); Sodium 139 mmol/L (135-145); Total Bilirubin 0.9 mg/dL (0.3-1.2); Total Protein 5.5 g/dL (6.2-8.2)
[2023-06-11 10:27] LABS: Creatine Kinase 1019 U/L (26-186)
--- NOTE | 2023-06-11 15:04 | P.PN ---
Subjective Progress Note Date: 06/11/23 This is a 68-year-old female who presented to the emergency department via EMS at another facility and transferred here for traumatic injury. Patient reports she had been drinking heavily and had a fall and was out for approximately 2 days. Patient sent here for further evaluation including multiple traumas with the left hip and ankle fracture. Patient was admitted to general surgery with orthopedics and medicine on consult for medical management. Patient with a past medical history of chronic alcohol use and dependence with continued nicotine dependence, anxiety, depression, panic disorder. Patient reports she follows with Dr. Biswas in the outpatient setting. [facility] was noted to have a medial malleolar fracture on the left as well as a left impacted femoral neck fracture with a complicated laceration over the left ear and also acute rhabdomyolysis. CT of the chest abdomen pelvis were done showing no evidence of traumatic injury to the chest or abdominal visceral with a noted left femoral neck fracture and hepatic steatosis EKG showed sinus tachycardia. 06/11/2023 Patient evaluated in follow up today on the medical floor. Continues to report pain to the left hip and leg. Plans for surgical repair of the left femur fracture as well as the left ear laceration tomorrow. Patient remains on CIWA with concern for impending alcohol withdrawal. She is feeling naseaus today and receiving zofran. CK level has been repeated and improving down to 1019. N eurology on consultation and recommending EEG. Review of Systems Constitutional: Denied any fatigue denied any fever. Cardio vascular: denied any chest pain, palpitations Gastrointestinal: denied any nausea, vomiting, diarrhea Pulmonary: Denied any shortness of breath cough Neurologic denied any new focal deficits All inpatient medications were reviewed and appropriate changes in these medications as dictated in the interval history and assessment and plan. PHYSICAL EXAMINATION: GENERAL: The patient is alert and oriented x3, not in any acute distress. Well developed, well nourished. HEENT: Pupils are round and equally reacting to light. EOMI. No scleral icterus. No conjunctival pallor. Normocephalic, atraumatic. No pharyngeal erythema. No thyromegaly. CARDIOVASCULAR: S1 and S2 present. No murmurs, rubs, or gallops. PULMONARY: Chest is clear to auscultation, no wheezing or crackles. ABDOMEN: Soft, nontender, nondistended, normoactive bowel sounds. No palpable organomegaly. MUSCULOSKELETAL: No joint swelling or deformity. EXTREMITIES: No cyanosis, clubbing, or pedal edema. NEUROLOGICAL: Gross neurological examination did not reveal any focal deficits. SKIN: No rashes. Assessment: Acute alcohol intoxication resulting in a fall with a displaced left subcapital femur fracture Recent left ankle avulsion and fracture of the medial malleolus Complex left ear laceration Chronic alcohol abuse Acute rhabdomyolysis from a fall, patient reports she was down almost 2 days Continued ongoing nicotine dependence Elevated LFTs likely secondary to daily alcohol use Plan: Patient admitted under surgery services for trauma and noted to have an impacted left femur fracture scheduled to undergo surgical intervention on Tuesday with orthopedics ENT is consulted for a complicated left ear laceration secondary to the fall recommending debridement and repair of the laceration. This will be done on Tuesday as well. Continue with IV hydration and follow-up on repeat labs Strongly encourage CIWA protocol and continued pain management per orthopedics as well as general surgery Continue antiemetics as needed We will continue to follow with surgery during hospitalization. Thank you kindly for this consultation. The impression and plan of care has been dictated by Sade Jiemnez, Nurse Practitioner as directed. Dr. Cheyanne MD I have performed a history and physical examination and medical decision making of this patient, discussed the same with the dictator, and agree with the dictators assessment and plan as written, documented as a scribe. Based on total visit time, I have performed more than 50% of this visit. Objective - Vital Signs Vital signs: Vital Signs Temp 98.4 F 06/11/23 14:00 Pulse 89 06/11/23 14:00 Resp 16 06/11/23 14:00 BP 155/80 06/11/23 14:00 Pulse Ox 97 06/11/23 14:00 FiO2 Intake & Output 06/10/23 06/11/23 06/11/23 18:59 06:59 18:59 Intake Total 1560 Output Total 775 575 Balance -775 985 Weight 68.039 kg Intake: Intake, IV Titration 1560 Amount Sodium Chloride 0.9% 1, 1560 000 ml @ 130 mls/hr IV . Q7H42M [facility] Rx#:[id number] Output: Urine 775 575 Other: Voiding Method Indwelling Catheter Indwelling Catheter Indwelling Catheter - Labs CBC & Chem 7: 06/10/23 05:45 06/11/23 06:16 Labs: Abnormal Lab Results - Last 24 Hours (Table) 06/11/23 Range/Units 06:16 BUN/Creatinine Ratio 24.14 H (12.00-20.00) Ratio AST 68 H (13-35) U/L Creatine Kinase 1019 A* (26-186) U/L Total Protein 5.5 L (6.2-8.2) g/dL Albumin 3.3 L (3.8-4.9) g/dL Albumin/Globulin Ratio 1.50 L (1.60-3.17) Ratio Assessment and Plan Time with Patient: Less than 30
[2023-06-11 18:17] LABS: Amphetamine Screen,Urine Not Detected (NotDetected); Barbiturate Screen,Urine Not Detected (NotDetected); Benzodiazepines Screen,Urine Not Detected (NotDetected); Cocaine Screen,Urine Not Detected (NotDetected); Methadone Screen, Urine Not Detected (NotDetected); Opiate Screen,Urine Detected (NotDetected); Oxycodone Screen, Urine Not Detected (NotDetected); Phencyclidine Screen,Urine Not Detected (NotDetected); Tricyclic Antidepressant,Urine Not Detected (NotDetected); Urn Cannabinoid Scrn Detected (NotDetected)
--- NOTE | 2023-06-11 18:53 | P.PN ---
Subjective Patient seen and evaluated at bedside. no new complaints. no overnight events. Objective - Vital Signs Vital signs: Vital Signs Temp 98.4 F 06/11/23 14:00 Pulse 89 06/11/23 14:00 Resp 16 06/11/23 14:00 BP 155/80 06/11/23 14:00 Pulse Ox 97 06/11/23 14:00 FiO2 Intake & Output 06/10/23 06/11/23 06/11/23 18:59 06:59 18:59 Intake Total 1560 Output Total 830 665 1280 Balance -775 985 -1100 Weight 68.039 kg Intake: Intake, IV Titration 1560 Amount Sodium Chloride 0.9% 1, 1560 000 ml @ 130 mls/hr IV . Q7H42M [facility] Rx#:[id number] Output: Urine 161 350 2190 Other: Voiding Method Indwelling Catheter Indwelling Catheter Indwelling Catheter - Exam GENERAL: Well-developed in no acute distress. HEENT: No sclera icterus. Extraocular movements grossly intact. small pupils but equal, round and reactive. Moist buccal mucosa. Head is normocephalic. No nasal drainage. severe laceration of the top of the left ear. ABDOMEN: Soft. Nondistended. nontender NEUROLOGIC: Alert and oriented. Cranial nerves II through XII grossly intact. Extremities: Left leg in splint. Patient is able to wiggle toes on both feet. - Labs CBC & Chem 7: 06/10/23 05:45 06/11/23 06:16 Labs: Abnormal Lab Results - Last 24 Hours (Table) 06/11/23 06/11/23 Range/Units 06:16 17:29 BUN/Creatinine Ratio 24.14 H (12.00-20.00) Ratio AST 68 H (13-35) U/L Creatine Kinase 1019 A* (26-186) U/L Total Protein 5.5 L (6.2-8.2) g/dL Albumin 3.3 L (3.8-4.9) g/dL Albumin/Globulin Ratio 1.50 L (1.60-3.17) Ratio Urine Opiates Screen Detected H (NotDetected) U Marijuana (THC) Screen Detected H (NotDetected) Assessment and Plan Assessment: 68 yo female s/p left femur fracture -or 4/7 -pain meds -social work/case management
[2023-06-12] MEDS ORDERED: KETAMINE HCL IN 0.9 % NACL 50 MG/5 ML SYRINGE ONE (08:10)
[2023-06-12] MEDS: SODIUM CHLORIDE 0.9% 1,000 ML IV ONE (08:10)
[2023-06-12] MEDS ORDERED: fentaNYL (PF) 50 MCG/ML 2 ML AMP ONE (08:10)
[2023-06-12] MEDS ORDERED: MIDAZOLAM 2 MG/2 ML VIAL ONE (08:10)
[2023-06-12] MEDS ORDERED: NEOSTIGMINE 1 MG/ML 10 ML VIAL ONE (08:10)
[2023-06-12] MEDS ORDERED: GLYCOPYRROLATE 0.2 MG/ML 2 ML VIAL ONE (08:10)
[2023-06-12] MEDS ORDERED: ROCURONIUM 10 MG/ML (5 ML VIAL) IV ONE (08:10)
[2023-06-12] MEDS ORDERED: PROPOFOL 10 MG/ML 20 ML VIAL IV ONE (08:10)
[2023-06-12] MEDS: SODIUM CHLORIDE 0.9% 100 ML with ceFAZolin 2,000 MG IV ONE (08:10)
[2023-06-12] MEDS ORDERED: SUCCINYLCHOLINE CHLORIDE 200 MG/10 ML VIAL IV ONE (08:10)
[2023-06-12] MEDS: ceFAZolin 1,000 MG in SODIUM CHLORIDE 0.9% 1,000 ML IRRIGATION ONE (08:42)
[2023-06-12] MEDS: LIDOCAINE 1%-EPI 1:100,000 20 ML VIAL SQ ONE (08:42)
[2023-06-12] MEDS: BACITRACIN ZINC 500 UNIT/GM OINT 28.4 GM TUBE TOPICAL ONE (09:09)
[2023-06-12] MEDS: LACTATED RINGERS 1,000 ML IV ONE (09:18)
--- NOTE | 2023-06-12 09:27 | P.OP ---
Date of Procedure: 06/12/23 Preoperative Diagnosis: 3.6 cm left postauricular laceration 3.1 cm left auricular transection Postoperative Diagnosis: same Procedure(s) Performed: 1. Debridement and complex repair of a 3.6 cm deep left posterior auricular laceration 2. Debridement and otoplastic complex repair of a 3.1 cm left auricular transection Anesthesia: CHELE Surgeon: Ismael Colon Estimated Blood Loss (ml): 5 Pathology: none sent Condition: stable Disposition: PACU Indications for Procedure: This patient fell earlier last week and sustained a transection of the left auricle and a postauricular laceration. Surgical removal was planned for this morning. All risks, benefits, and alternative therapies were discussed. Consent was obtained and all questions were answered. Operative Findings: patient had a 3.6 cm left postauricular deep laceration, 3.1 cm left auricular transection was also noted Description of Procedure: patient underwent a general inhalation anesthetic. The left ear was sterilely prepped and draped in usual fashion and the ear and postauricular area was injected with lidocaine 1% with epinephrine 1 100,010 minutes were allowed wait for full vasoconstrictive effects to take place. We then evaluated the posta uricular laceration which measured 3.6 cm and a 3.1 cm left auricular transection. This was an old laceration so therefore the edges were debrided and we removed devitalized tissue devitalized cartilage etc. After both lacerations were abraded we then closed the left auricular transection with use of a 4-0 Monocryl to close the cartilage. We reapproximated the auricular cartilage with 4-0 Monocryl in an interrupted type fashion burying the sutures. We then elevated the edges appropriately and then we closed the skin with use of a 4-0 Vicryl deeply and a 4-0 Vicryl in a running locking fashion both anteriorly and posteriorly. We reapproximated the helical fold appropriately trachea attention was then paid to the left postauricular laceration were we also debrided the edges. We did extensive undermining in all directions we closed the deep subcutaneous tissue with 4-0 Monocryl in an interrupted type fashion we closed the deep dermal layer with 4-0 Monocryl. We did do extensive undermining in all directions and removing devitalized tissue. We closed the skin with use of a 50 rapid Vicryl in a running nonlocking fashion. Excellent approximation was obtained. The patient tolerated this well and follow-up will be in the office in 1-2 weeks. All sutures are dissolvable.
[2023-06-12] MEDS ORDERED: HYDROmorphone 0.5 MG/0.5 ML SYRINGE IVP PRN ×2 (09:50)
[2023-06-12] MEDS ORDERED: NALOXONE 0.4 MG/ML 1 ML VIAL IV PRN (09:50)
--- NOTE | 2023-06-12 09:50 | P.OP ---
Date of Procedure: 06/12/23 Preoperative Diagnosis: Displaced left hip femoral neck fracture Postoperative Diagnosis: Displaced left hip femoral neck fracture Procedure(s) Performed: Direct anterior left total hip arthroplasty Implants: 1. DePuy Corail KA 135 degree standard collar size 14 press-fit femoral stem 2. DePuy Ridott 52 mm press-fit acetabular shell 3. DePuy Ridott neutral polyethylene acetabular liner 52 mm OD 36 mm ID 4. Biolox delta ceramic femoral head +1.5 36 mm Anesthesia: GETA Surgeon: Aldo Powell Ethics Instructor #1: Abhishek Price Estimated Blood Loss (ml): 65 Pathology: none sent Condition: stable Disposition: PACU Indications for Procedure: 68-year-old patient seen with a displaced left hip femoral neck fracture. We discussed direct anterior left total hip arthroplasty. Patient was agreeable. Consent was obtained. Operative Findings: See description of procedure Description of Procedure: The patient was taken to the operative suite. Patient underwent a general anesthetic by the department of anesthesia. Patient was then transferred to the [facility] table. Patient was given preoperative IV antibiotics and TXA. Both lower extremities were placed in standard leg spars. The hip was then prepped and draped in the normal sterile orthopedic fashion. A standard anterior incision was made beginning 3 cm lateral and 1 cm distal to the ASIS extending 10 cm. Dissection was then carried down through the subcutaneous soft tissues down to the fascia overlying the tensor fascia nakita. An incision was now made through the fascia. Careful dissection was taken down exposing the tensor fascia nakita muscle. A Cobra retractor was now placed along the medial femoral neck and a second one along the lateral femoral neck. The venous circumflex vessels were now identified, cauterized and clipped. We identified the anterior hip capsule. An incision was made through the hip capsule along the lateral border. I I encountered hemarthrosis consistent with her capsule I performed a partial anterior capsulectomy. Retractors were now placed around the femoral neck itself. There was a displaced femoral neck fracture with some comminution. I removed the fractured femoral head. I used a saw to take away some residual femoral neck. The extremity was now rotated to 60 of external rotation. It was locked in position. Residual labrum was now debrided out. Serial reaming was performed of the acetabulum while Ga GARCIA assisted holding an anterior retractor for exposure. Once we reached the appropriate size and a trial was position and fit nicely. The appropriate size was now chosen opened and made available. It was introduced into the acetabulum without difficulty. The C-arm/fluoroscopy was now brought into the operative field. We made sure we had a true AP pelvic view. We now under direct C-arm/fluoroscopy introduced into the acetabular component with appropriate version and inclination. I held the cup in appropriate position well Ga GARCIA used a mallet to seat the acetabular component. I noted the component now to be well seated and stable. Acetabular cup introduce her was removed. The C-arm was pulled back. An appr opriate liner was introduced and clicked into position. It was felt to be stable. At this point retractors were removed. The extremity was now placed into 120 external rotation with no traction. The leg was now dropped to the ground and adducted. Appropriate retractors were now positioned along the proximal femur. We also placed our femoral look into position. Additional capsular releasing was performed to gain access to the proximal femur. We now used a box osteotome. A canal finder was now utilized. Serial broaching was now performed with the assistance of Ga GARCIA tapping the broaches down with a mallet while held the broach in appropriate rotation and position. This was done until we reached the appropriate size with good overall rotational stability. Appropriate calcar planing was performed. A trial head/neck was placed into position. The hip was now reduced. The C-arm/fluoroscopy was brought back into the operative field. I obtained an AP pelvis demonstrating reasonable leg length alignment and adequate positioning of the trial components. The C-arm/fluoroscopy was pulled back. Retractors were repositioned and the hip was dislocated. The leg was again taken down to the ground and adducted. Appropriate retractors were repositioned as well as the femoral hook. All trial components were removed. The femoral implant was opened along with the femoral head. The femoral implant was introduced on the appropriate handle into our pre-broached area. I held the component position well Ga GARCIA used a mallet to seat the femoral component. The femoral component was now noted to be well seated and stable.. The femoral head was introduced with good positioning and fixation noted. Retractors were now removed. The hip was now reduced. There appeared be good positioning of the hip confirmed on intraoperative fluoroscopy. Spot films were obtained to document this. A second gram of TXA was given. The deep and superficial soft tissues were infiltrated with local analgesic. Bipolar cautery had been utilized intermittently through the procedure for hemostasis. The wound was irrigated copiously with pulse lavage mechanical irrigation. The fascia was repaired with Vicryl suture. The subcutaneous soft tissues were repaired in layers with Vicryl suture. The skin was approximated with pernio/Dermabond. Sterile dressings were applied. Patient was then awakened, transferred to a bed and taken to recovery in stable condition. Ga GARCIA assisted with the complex procedure.
[2023-06-12 09:54] LABS: Basophils # (A) 0.01 X 10*3/uL (0.00-0.10); Basophils % (A) 0.1 %; Eosinophils # (A) 0.22 X 10*3/uL (0.04-0.35); Eosinophils % (A) 2.5 %; HGB 11.4 g/dL (12.0-15.0); Lymphocytes # (A) 1.81 X 10*3/uL (0.90-5.00); Lymphocytes % (A) 20.3 %; MCH 30.4 pg (27.0-32.0); MCHC 32.6 g/dL (32.0-37.0); MCV 93.3 FL (80.0-97.0); Mean Platelet Volume 10.5 FL (9.5-12.2); Monocytes # (A) 0.52 X 10*3/uL (0.20-1.00); Monocytes % (A) 5.8 %; NRBC Per 100 WBC 0 X 10*3/uL (0.00-0.01); Neutrophils # (A) 6.32 X 10*3/uL (1.80-7.70); Neutrophils % (A) 70.9 %; Platelet Count 172 X 10*3/uL (140-440); RBC 3.75 X 10*6/uL (4.10-5.20); RDW 14.2 % (11.5-14.5); WBC 8.92 X 10*3/uL (4.50-10.00)
--- NOTE | 2023-06-12 09:57 | FL ---
Fluoroscopy History: Left Hip-Ant Left Hip-Ant 18sec fluoro time .4206 DAP
[2023-06-12 10:02] LABS: BUN/Creat Ratio 15.33 Ratio (12.00-20.00); Blood Urea Nitrogen 9.2 mg/dL (9.0-27.0); Calcium 8.4 mg/dL (8.7-10.3); Carbon Dioxide 23.9 mmol/L (21.6-31.8); Chloride 98 mmol/L (96-109); Glucose 72 mg/dL (70-110); Magnesium 1.5 mg/dL (1.5-2.4); Potassium 3.2 mmol/L (3.5-5.5); Sodium 135 mmol/L (135-145)
[2023-06-12] MEDS: HYDROmorphone 0.5 MG/0.5 ML SYRINGE IVP ONE ×2 (10:18→10:28)
[2023-06-12] MEDS: TRANEXAMIC 1,000 MG/100ML-NACL 1,000 MG in SALINE 1 100ML.BAG IVPB ONE (11:10)
[2023-06-12] MEDS: HYDROmorphone 0.5 MG/0.5 ML SYRINGE IVP PRN (11:11)
[2023-06-12] MEDS: ONDANSETRON 4 MG/2 ML VIAL IVP PRN (11:13)
[2023-06-12] MEDS ORDERED: ONDANSETRON 4 MG/2 ML VIAL IVP PRN (11:41)
[2023-06-12] MEDS: LACTATED RINGERS 1,000 ML IV SCH (11:45)
[2023-06-12] MEDS ORDERED: Potassium Replacement Protocol 1 EACH MISC MISCELLANE PRN (11:59)
--- NOTE | 2023-06-12 12:36 | P.PN ---
Subjective Progress Note Date: 06/12/23 Principal diagnosis: Fall Patient recently returned back to the room from her left hip and left ear surgery. Complaining of pain. Tmax 99.2. Denies shortness of breath. No hedy sea or vomiting. Objective - Vital Signs Vital signs: Vital Signs Temp 97.5 F L 06/12/23 11:06 Pulse 101 H 06/12/23 11:52 Resp 14 06/12/23 11:52 BP 158/85 06/12/23 11:52 Pulse Ox 98 06/12/23 11:52 FiO2 Intake & Output 06/11/23 06/12/23 06/12/23 18:59 06:59 18:59 Intake Total 1560 1101 Output Total 1100 1800 115 Balance -1100 -240 986 Weight 68.039 kg Intake: IV 1101 Intake, IV Titration 1560 Amount Sodium Chloride 0.9% 1, 1560 000 ml @ 130 mls/hr IV . Q7H42M [facility] Rx#:[id number] Output: Urine 1100 1800 50 Estimated Blood Loss 65 Other: Voiding Method Indwelling Catheter Indwelling Catheter - Exam Abdomen: Soft, nontender, nondistended Surgical dressing in place left ear left hip - Labs CBC & Chem 7: 06/12/23 05:22 06/12/23 05:22 Labs: Abnormal Lab Results - Last 24 Hours (Table) 06/11/23 06/12/23 06/12/23 Range/Units 17:29 05:22 05:22 RBC 3.75 L (4.10-5.20) X 10*6/uL Hgb 11.4 L (12.0-15.0) g/dL Hct 35.0 L (37.2-46.3) % Potassium 3.2 L (3.5-5.5) mmol/L Anion Gap 13.10 H (4.00-12.00) mmol/L Calcium 8.4 L (8.7-10.3) mg/dL Urine Opiates Screen Detected H (NotDetected) U Marijuana (THC) Screen Detected H (NotDetected) Assessment and Plan (1) Fracture of femoral neck, left, closed Narrative/Plan: 68-year-old female doing well after surgery this morning for her left hip fra cture and her lacerated left ear. Continue analgesics. Continue GI and DVT prophylaxis. Resume regular diet. Discharge planning tomorrow after initiation of physical therapy. Current Visit: Yes Status: Acute Code(s): S72.002A - FRACTURE OF UNSP PART OF NECK OF LEFT FEMUR, INIT SNOMED Code(s): 714208568
[2023-06-12] MEDS: MULTIVITAMINS, THERA 1 EACH TAB PO SCH (12:53)
[2023-06-12] MEDS: POTASSIUM CHLORIDE ER 20 MEQ TAB.ER PO SCH (12:54)
[2023-06-12] MEDS ORDERED: MAGNESIUM HYDROXIDE 2,400 MG/30 ML CUP PO PRN (13:04)
--- NOTE | 2023-06-12 14:51 | P.PN ---
Subjective Progress Note Date: 06/12/23 This is a 68-year-old female who presented to the emergency department via EMS at another facility and transferred here for traumatic injury. Patient reports she had been drinking heavily and had a fall and was out for approximately 2 days. Patient sent here for further evaluation including multiple traumas with the left hip and ankle fracture. Patient was admitted to general surgery with orthopedics and medicine on consult for medical management. Patient with a past medical history of chronic alcohol use and dependence with continued nicotine dependence, anxiety, depression, panic disorder. Patient reports she follows with Dr. Biswas in the outpatient setting. [facility] at an [facility] was noted to have a medial malleolar fracture on the left as well as a left impacted femoral neck fracture with a complicated laceration over the left ear and also acute rhabdomyolysis. CT of the chest abdomen pelvis were done showing no evidence of traumatic injury to the chest or abdominal visceral with a noted left femoral neck fracture and hepatic steatosis EKG showed sinus tachycardia. 06/11/2023 Patient evaluated in follow up today on the medical floor. Continues to report pain to the left hip and leg. Plans for surgical repair of the left femur fracture as well as the left ear laceration tomorrow. Patient remains on CIWA with concern for impending alcohol withdrawal. She is feeling naseaus today and receiving zofran. CK level has been repeated and improving down to 1019. N eurology on consultation and recommending EEG. 06/12/2023 Patient is evaluated in follow up today. She is taken to the OR for repair of the left hip fracture and also repair of the left ear laceration. Not currently requiring any ativan with no signs for acute alcohol withdrawal at this time we will discontinue the CIWA protocol. Labs come back today potassium 3.2, magnesium 1.5. Review of Systems Constitutional: Denied any fatigue denied any fever. Cardio vascular: denied any chest pain, palpitations Gastrointestinal: denied any nausea, vomiting, diarrhea Pulmonary: Denied any shortness of breath cough Neurologic denied any new focal deficits All inpatient medications were reviewed and appropriate changes in these medications as dictated in the interval history and assessment and plan. PHYSICAL EXAMINATION: GENERAL: The patient is alert and oriented x3, not in any acute distress. Well developed, well nourished. HEENT: Pupils are round and equally reacting to light. EOMI. No scleral icterus. No conjunctival pallor. Normocephalic, atraumatic. No pharyngeal erythema. No thyromegaly. CARDIOVASCULAR: S1 and S2 present. No murmurs, rubs, or gallops. PULMONARY: Chest is clear to auscultation, no wheezing or crackles. ABDOMEN: Soft, nontender, nondistended, normoactive bowel sounds. No palpable organomegaly. MUSCULOSKELETAL: No joint swelling or deformity. EXTREMITIES: No cyanosis, clubbing, or pedal edema. NEUROLOGICAL: Gross neurological examination did not reveal any focal deficits. SKIN: No rashes. Assessment: Acute alcohol intoxication resulting in a fall with a displaced left subcapital femur fracture Recent left ankle avulsion and fracture of the medial malleolus Complex left ear laceration Chronic alcohol abuse Acute rhabdomyolysis from a fall, patient reports she was down almost 2 days Continued ongoing nicotine dependence Elevated LFTs likely secondary to daily alcohol use Hypertension add metoprolol and monitor. Plan: Patient admitted under surgery services for trauma and noted to have an impacted left femur fracture scheduled to undergo surgical intervention on Tuesday with orthopedics ENT is consulted for a complicated left ear laceration secondary to the fall recommending debridement and repair of the laceration. This will be done on Tuesday as well. Continue with IV hydration and follow-up on repeat labs Continued pain management per orthopedics as well as general surgery Continue antiemetics as needed We will continue to follow with surgery during hospitalization. Thank you kindly for this consultation. The impression and plan of care has been dictated by Sade Jimenez Nurse Practitioner as directed. Dr. Cheyanne MD I have performed a history and physical examination and medical decision making of this patient, discussed the same with the dictator, and agree with the dictators assessment and plan as written, documented as a scribe. Based on total visit time, I have performed more than 50% of this visit. Objective - Vital Signs Vital signs: Vital Signs Temp 97.5 F L 06/12/23 11:06 Pulse 102 H 06/12/23 13:00 Resp 16 06/12/23 13:00 BP 151/85 06/12/23 13:00 Pulse Ox 96 06/12/23 13:00 FiO2 Intake & Output 06/11/23 06/12/23 06/12/23 18:59 06:59 18:59 Intake Total 1560 1101 Output Total 1100 1800 115 Balance -1100 -240 986 Weight 68.039 kg Intake: IV 1101 Intake, IV Titration 1560 Amount Sodium Chloride 0.9% 1, 1560 000 ml @ 130 mls/hr IV . Q7H42M [facility] Rx#:[id number] Output: Urine 1100 1800 50 Estimated Blood Loss 65 Other: Voiding Method Indwelling Catheter Indwelling Catheter - Labs CBC & Chem 7: 06/12/23 05:22 06/12/23 05:22 Labs: Abnormal Lab Results - Last 24 Hours (Table) 06/11/23 06/12/23 06/12/23 Range/Units 17:29 05:22 05:22 RBC 3.75 L (4.10-5.20) X 10*6/uL Hgb 11.4 L (12.0-15.0) g/dL Hct 35.0 L (37.2-46.3) % Potassium 3.2 L (3.5-5.5) mmol/L Anion Gap 13.10 H (4.00-12.00) mmol/L Calcium 8.4 L (8.7-10.3) mg/dL Urine Opiates Screen Detected H (NotDetected) U Marijuana (THC) Screen Detected H (NotDetected) Assessment and Plan Time with Patient: Less than 30
[2023-06-12] MEDS: HYDROcodone/APAP 7.5-325MG 1 EACH TAB PO PRN (15:14)
[2023-06-12] MEDS: METOPROLOL TARTRATE 12.5 MG TAB PO STA (15:14)
[2023-06-12] MEDS: MAGNESIUM SULFATE-D5W PMX 1 GM in DEXTROSE/WATER 1 100ML.BAG IVPB SCH (15:15)
[2023-06-12] MEDS: METOPROLOL TARTRATE 12.5 MG TAB PO SCH (21:16)
--- NOTE | 2023-06-13 08:33 | P.PN ---
Subjective Progress Note Date: 06/12/23 Patient was seen for a follow-up. Patient is laying comfortably in the bed. Patient had left hip total arthroplasty as well as complex repair and debridement of the left posterior auricular laceration performed today. She is sore from surgery. Patient admits to using marijuana gummies. Objective - Vital Signs Vital signs: Vital Signs Temp 97.5 F L 06/12/23 11:06 Pulse 102 H 06/12/23 13:00 Resp 16 06/12/23 13:00 BP 151/85 06/12/23 13:00 Pulse Ox 96 06/12/23 13:00 FiO2 Intake & Output 06/11/23 06/12/23 06/12/23 18:59 06:59 18:59 Intake Total 1560 1101 Output Total 1100 1800 115 Balance -1100 -240 986 Weight 68.039 kg Intake: IV 1101 Intake, IV Titration 1560 Amount Sodium Chloride 0.9% 1, 1560 000 ml @ 130 mls/hr IV . Q7H42M [facility] Rx#:[id number] Output: Urine 1100 1800 50 Estimated Blood Loss 65 Other: Voiding Method Indwelling Catheter Indwelling Catheter - Exam Examination unchanged. Mentation normal. - Labs CBC & Chem 7: 06/12/23 05:22 06/12/23 05:22 Labs: Abnormal Lab Results - Last 24 Hours (Table) 06/11/23 06/12/23 06/12/23 Range/Units 17:29 05:22 05:22 RBC 3.75 L (4.10-5.20) X 10*6/uL Hgb 11.4 L (12.0-15.0) g/dL Hct 35.0 L (37.2-46.3) % Potassium 3.2 L (3.5-5.5) mmol/L Anion Gap 13.10 H (4.00-12.00) mmol/L Calcium 8.4 L (8.7-10.3) mg/dL Urine Opiates Screen Detected H (NotDetected) U Marijuana (THC) Screen Detected H (NotDetected) Assessment and Plan Assessment: * Status post unwitnessed fall with loss of consciousness. Patient states that she was drinking alcohol and blacked out and woke up on the floor. Rule out alcoholic blackout versus withdrawal seizure. Patient voluntarily did not call ambulance and stayed home for couple days before calling the ambulance. * Left hip fracture due to fall. Status post total left hip arthroplasty 06/12/2023. * Transection of the left ear due to the fall. Status post repair 06/12/2023. * Elevated blood pressures, possible hypertension. * Alcoholism * Tobacco use Plan: * Await EEG to rule out any epileptiform activity. * Carotid Doppler revealed moderate atherosclerotic changes without hemodynamic ally significant stenosis in either ICA. Antegrade flow in both vertebral arteries. * Thiamine, folate, multivitamins. * Patient is status post left hip arthroplasty and left auricular repair. * Patient counseled about abstinence from alcohol and tobacco use. * Patient informed of [place] state law of no driving unless free of syncopal spells/seizures for 6 months. She should avoid climbing ladders, operating dangerous machineries or unsupervised swimming. * Urine drug screen positive for marijuana and opiate. * Neurologically clear, if the EEG comes back normal. * Dr. Villa Iglesias to resume neurology service from Tuesday.
--- NOTE | 2023-06-13 08:34 | CDI ---
Date: From: Millie Borden Phone: [phone] Admit Date: 06/10/2023 06:30:00 AM Patient Name: Nabila Layton Visit Number: [id number] Discharge Date: ATTENTION: The Clinical Documentation Specialists (CDI) and [facility] Coding Staff appreciate your assistance in clarifying documentation. Please respond to the clarification below the line at the bottom and electronically sign. The CDI & [facility] Coding staff will review the response and follow-up if needed. Please note: Queries are made part of the Legal Health Record. If you have any questions, please contact the author of this message via ITS. Dr. Carlos Pena: Acute rhabdomyolysis is documented in the IM consult note 06/09. Additional clarification regarding the type of rhabdomyolysis is requested. History/Risk Factors: History of alcohol use disorder who presents after fall with left femoral neck fracture, complicated left ear laceration Clinical Indicators: 06/09 Triage VS: 168/99, 98.2, 110, 18, 98% room air 06/09 H&P, Assessment: "5. Rhabdomyolysis with prolonged time on floor." 06/09 IM consult, Assessment: "Acute rhabdomyolysis from a fall, patient reports she was down for almost 2 days." 06/09, 06/10 Creatinine Kinase: 2064, 1019 06/09-06/11 BUN: 25, 16.0, 9.2 Treatment: Normal Saline 1000cc bolus once 06/09, then 130cc/hour 06/09-06/11 Please clarify the type of rhabdomyolysis, if known: [ ] Traumatic rhabdomyolysis due to fall [ X] Traumatic rhabdomyolysis due to prolonged immobility [ ] Other, please specify [ ] Unable to Determine MTDD
[2023-06-13] MEDS: SENNOSIDES-DOCUSATE SODIUM 1 EACH TAB PO SCH (08:44)
[2023-06-13] MEDS: ENOXAPARIN 40 MG/0.4 ML SYRINGE SQ SCH (08:44)
[2023-06-13 08:47] LABS: Basophils # (A) 0.01 X 10*3/uL (0.00-0.10); Basophils % (A) 0.1 %; Eosinophils # (A) 0.26 X 10*3/uL (0.04-0.35); Eosinophils % (A) 2.2 %; HCT 31.4 % (37.2-46.3); HGB 10.6 g/dL (12.0-15.0); Lymphocytes % (A) 11.1 %; MCHC 33.8 g/dL (32.0-37.0); MCV 91.8 FL (80.0-97.0); Mean Platelet Volume 10.5 FL (9.5-12.2); Monocytes # (A) 0.79 X 10*3/uL (0.20-1.00); Monocytes % (A) 6.7 %; NRBC Per 100 WBC 0 X 10*3/uL (0.00-0.01); Neutrophils # (A) 9.32 X 10*3/uL (1.80-7.70); Neutrophils % (A) 79.3 %; Platelet Count 127 X 10*3/uL (140-440); RBC 3.42 X 10*6/uL (4.10-5.20); WBC 11.75 X 10*3/uL (4.50-10.00)
--- NOTE | 2023-06-13 09:07 | CDI ---
Date: 06/13/2023 From: Millie Borden Phone: [phone] Admit Date: 06/10/2023 06:30:00 AM Patient Name: Nabila Layton Visit Number: [id number] Discharge Date: ATTENTION: The Clinical Documentation Specialists (CDI) and [facility] Coding Staff appreciate your assistance in clarifying documentation. Please respond to the clarification below the line at the bottom and electronically sign. The CDI & [facility] Coding staff will review the response and follow-up if needed. Please note: Queries are made part of the Legal Health Record. If you have any questions, please contact the author of this message via ITS. Dr. Ismael Colon: A debridement is documented in the Operative note 06/11. Additional clarification regarding the procedure is requested. History/Risk Factors: History of alcohol use disorder who presents after fall with left femoral neck fracture, complicated left ear laceration-3.6cm left postauricular deep laceration and 3.1cm left auricular transection Clinical Indicators: 06/11 Operative note, Description of Procedure: "This was an old laceration so therefore the edges were debrided and we removed devitalized tissue, devitalized cartilage etc. After both lacerations were abraded and we removed devitalized tissue, we then closed the left auricular transection.... attention was then paid to the left postauricular laceration were we also debrided the edges. We did do extensive undermining in all directions and removing devitalized tissue." Treatment: Left auricular transection-closed with 4-0 Monocryl, auricular cartilage reapproximated with 4-0 Monocryl and skin closed with 4-0 Vicryl Left post auricular laceration-deep subcutaneous tissue closed with 4-0 Monocryl, deep dermal layer closed with 4-0 Monocryl, skin closed with 5-0 rapide Vicryl Please clarify the type of procedure performed: [ ] Debridement of subcutaneous tissue [ ] Debridement of muscle [ ] Debridement of skin [ ] Other, please specify [ ] Unable to determine Five elements required for accurate and compliant documentation of a debridement: Technique used (e.g., excisional, excised, cutting, brushing, jet lavage etc.) Instrument(s) used (e.g., scalpel, curette, etc.) Nature of the tissue removed (e.g., necrotic, devitalized tissues, non-viable tissue, etc.) Appearance and size of the wound (e.g., down to fresh bleeding tissue, 7cm x 10cm, etc.) Depth of the debridement* (e.g., skin, subcutaneous tissue, fascia, muscle, bone, etc.) Answered in op note addendum by Dr Colon on 06/20- debridement skin and necrotic cartilage MTDD
--- NOTE | 2023-06-13 13:02 | P.PN ---
Subjective Progress Note Date: 06/13/23 Principal diagnosis: left femoral neck fracture patient examined today at bedside, she is resting comfortably. Patient got up to the chair with the assistance of a walker and physical therapy. The urinary catheter remains in place. Pain is well-controlled. Patient will be n.p.o. after midnight tonight. Objective - Vital Signs Vital signs: Vital Signs Temp 99.5 F 06/13/23 07:36 Pulse 120 H 06/13/23 08:45 Resp 18 06/13/23 07:36 BP 152/77 06/13/23 07:36 Pulse Ox 96 06/13/23 07:36 FiO2 Intake & Output 06/12/23 06/13/23 06/13/23 18:59 06:59 18:59 Intake Total 1101 Output Total 495 700 Balance 606 -700 Weight 68.039 kg Intake: IV 1101 Output: Urine 430 700 Estimated Blood Loss 65 Other: Voiding Method Indwelling Catheter Indwelling Catheter Indwelling Catheter - Exam Left lower extremity: Incision is clean, dry, and intact. The foam dressing is in good condition. There is minimal soft tissue swelling and ecchymosis surrounding the medial and lateral aspects of the incision. Calf is soft, no tenderness with palpation. Plantar flexion, dorsiflexion, EHL, FHL are intact. Sensory exam to light touch throughout the extremity is intact, dorsal pedis pulses 2+. - Labs CBC & Chem 7: 06/13/23 05:44 06/13/23 05:44 Labs: Abnormal Lab Results - Last 24 Hours (Table) 06/13/23 Range/Units 05:44 WBC 11.75 H (4.50-10.00) X 10*3/uL RBC 3.42 L (4.10-5.20) X 10*6/uL Hgb 10.6 L (12.0-15.0) g/dL Hct 31.4 L (37.2-46.3) % Plt Count 127 L (140-440) X 10*3/uL Immature Gran # 0.07 H (0.00-0.04) X 10*3/uL Neutrophils # 9.32 H (1.80-7.70) X 10*3/uL Assessment and Plan Assessment: Postoperative day #1 status post direct anterior left total hip arthroplasty Status post fall after alcohol intoxication Complex left ear laceration Rhabdomyolysis Other medical comorbidities Plan: pain control, recommend combination of oral and IV medication as needed DVT prophylaxis, continue heparin 5000 units every 12 hours Discontinue Edwin catheter monitor for DTs PT/OT evaluation after surgery other medical specialty recommendations appreciated continue to follow during hospital stay Time with Patient: Less than 30
--- NOTE | 2023-06-13 14:07 | P.PN ---
Subjective Progress Note Date: 06/13/23 CHIEF COMPLAINT: Fall HISTORY OF PRESENT ILLNESS: Patient status post left hip arthroplasty with orthopedic service and left ear surgery with ENT service yesterday. Patient does complain of pain in her leg. She is lying in bed comfortably. She did have some dry heaves yesterday. She is having flatus. No bowel movement. She is getting an EEG today. She has not been out of bed yet. Afebrile. Tac hycardic. WBC 11.75 Hgb 10.6 potassium 3.8 PHYSICAL EXAM: VITAL SIGNS: Reviewed. GENERAL: Well-developed in no acute distress. HEENT: Ear incision clean dry and intact ABDOMEN: Soft. Nondistended. Nontender. NEUROLOGIC: Alert and oriented. Cranial nerves II through XII grossly intact. Extremities: Surgical dressing left hip ASSESSMENT: 1. Fall 2. Left femoral neck fracture 3. Left ear laceration 4. Daily alcohol use 5. Hypokalemia improved PLAN: -Continue work with PT OT -Continue pain management -Consult placed for case management for possible ECF placement -DVT prophylaxis Lovenox and GI prophylaxis Protonix Physician Collision Worker note has been reviewed by physician. Signing provider agrees with the documented findings, assessment, and plan of care. I have personally seen and examined the patient, reviewed the DIRECTOR OF PATIENT FINANCIAL SERVICES /PAs history, exam and MDM and agree with the assessment and plan as written. Based on total visit time, I have performed more than 50% of the visit. As above: Patient doing better today. Pain is less. She did get out of bed earlier today. Your laceration incision looks great. Continue diet. Continue physical therapy. Home 24 to 48 hours. Objective - Vital Signs Vital signs: Vital Signs Temp 99.5 F 06/13/23 07:36 Pulse 120 H 06/13/23 08:45 Resp 18 06/13/23 07:36 BP 152/77 06/13/23 07:36 Pulse Ox 96 06/13/23 07:36 FiO2 Intake & Output 06/12/23 06/13/23 06/13/23 18:59 06:59 18:59 Intake Total 1101 Output Total 495 700 Balance 606 -700 Weight 68.039 kg Intake: IV 1101 Output: Urine 430 700 Estimated Blood Loss 65 Other: Voiding Method Indwelling Catheter Indwelling Catheter Indwelling Catheter - Labs CBC & Chem 7: 06/13/23 05:44 06/13/23 05:44 Labs: Abnormal Lab Results - Last 24 Hours (Table) 06/13/23 Range/Units 05:44 WBC 11.75 H (4.50-10.00) X 10*3/uL RBC 3.42 L (4.10-5.20) X 10*6/uL Hgb 10.6 L (12.0-15.0) g/dL Hct 31.4 L (37.2-46.3) % Plt Count 127 L (140-440) X 10*3/uL Immature Gran # 0.07 H (0.00-0.04) X 10*3/uL Neutrophils # 9.32 H (1.80-7.70) X 10*3/uL
--- NOTE | 2023-06-13 18:24 | P.PN ---
Subjective Progress Note Date: 06/13/23 This is a 68-year-old female who presented to the emergency department via EMS at another facility and transferred here for traumatic injury. Patient reports she had been drinking heavily and had a fall and was out for approximately 2 days. Patient sent here for further evaluation including multiple traumas with the left hip and ankle fracture. Patient was admitted to general surgery with orthopedics and medicine on consult for medical management. Patient with a past medical history of chronic alcohol use and dependence with continued nicotine dependence, anxiety, depression, panic disorder. Patient reports she follows with Dr. Biswas in the outpatient setting. Patient at an outside facility was noted to have a medial malleolar fracture on the left as well as a left impacted femoral neck fracture with a complicated laceration over the left ear and also acute rhabdomyolysis. CT of the chest abdomen pelvis were done showing no evidence of traumatic injury to the chest or abdominal visceral with a noted left femoral neck fracture and hepatic steatosis EKG showed sinus tachycardia. 06/11/2023 Patient evaluated in follow up today on the medical floor. Continues to report pain to the left hip and leg. Plans for surgical repair of the left femur fracture as well as the left ear laceration tomorrow. Patient remains on CIWA with concern for impending alcohol withdrawal. She is feeling naseaus today and receiving zofran. CK level has been repeated and improving down to 1019. Neurology on consultation and recommending EEG. 06/12/2023 Patient is evaluated in follow up today. She is taken to the OR for repair of the left hip fracture and also repair of the left ear laceration. Not currently requiring any ativan with no signs for acute alcohol withdrawal at this time we will discontinue the CIWA protocol. Labs come back today potassium 3.2, magnesium 1.5. 06/13/2023 Patient is seen and evaluated in follow-up today underwent left hip arthroplasty as well as left ear laceration repair with ENT. Patient to work with physical therapy and recommend daily as patient reports she wants to go home. Patient does not want to go to rehab. Will discuss further with case management regarding discharge planning. Electrolytes replaced per protocol and improved will follow-up with repeat labs. Patient is afebrile with no reported chest pain or shortness of breath. Patient tolerating diet and continues with occasional nausea with no vomiting. Recommend to continue with bowel regimen and limiting narcotic use if possible. Patient may likely benefit from ECF although patient reports she has help and would like to go home. Review of Systems Constitutional: Denied any fatigue denied any fever. Cardio vascular: denied any chest pain, palpitations Gastrointestinal: denied any nausea, vomiting, diarrhea Pulmonary: Denied any shortness of breath cough Neurologic denied any new focal deficits, reports continued left hip pain and weakness All inpatient medications were reviewed and appropriate changes in these medications as dictated in the interval history and assessment and plan. PHYSICAL EXAMINATION: GENERAL: The patient is alert and oriented x3, not in any acute distress. Well developed, well nourished. Slightly anxious on exam HEENT: Pupils are round and equally reacting to light. EOMI. No scleral icterus. No conjunctival pallor. Normocephalic, atraumatic. No pharyngeal erythema. No thyromegaly. CARDIOVASCULAR: S1 and S2 present. No murmurs, rubs, or gallops. PULMONARY: Chest is clear to auscultation, no wheezing or crackles. ABDOMEN: Soft, nontender, nondistended, normoactive bowel sounds. No palpable organomegaly. MUSCULOSKELETAL: No joint swelling or deformity. EXTREMITIES: No cyanosis, clubbing, or pedal edema. Left surgical hip site is dry and intact with some minimal swelling of the left hip although soft and palpable NEUROLOGICAL: Gross neurological examination did not reveal any focal deficits. Diffusely weak SKIN: No rashes. Laceration with multiple sutures noted on the left lower Assessment: Acute alcohol intoxication resulting in a fall with a displaced left subcapital femur fracture, status post left hip arthroplasty Recent left ankle avulsion and fracture of the medial malleolus Complex left ear laceration, status post suture repair with ENT Chronic alcohol abuse Acute rhabdomyolysis from a fall, patient reports she was down almost 2 days Continued ongoing nicotine dependence Elevated LFTs likely secondary to daily alcohol use Hypertension add metoprolol and monitor. Plan: Patient admitted under surgery services for trauma and noted to have an impacted left femur fracture status post left hip repair ENT i evaluated the patient for complicated left ear laceration secondary to the fall recommending debridement and repair of the laceration. Status post laceration repair Continue with IV hydration and follow-up on repeat labs Continued pain management per orthopedics as well as general surgery Continue antiemetics as needed We will continue to follow with surgery during hospitalization. Thank you kindly for this consultation. The impression and plan of care has been dictated by Adriana savage Nurse Practitioner as directed. Dr. Mónica MD I have performed a history and physical examination and medical decision making of this patient, discussed the same with the dictator, and agree with the dictators assessment and plan as written, documented as a scribe. Based on total visit time, I have performed more than 50% of this visit. Objective - Vital Signs Vital signs: Vital Signs Temp 99.5 F 06/13/23 07:36 Pulse 122 H 06/13/23 07:36 Resp 18 06/13/23 07:36 BP 152/77 06/13/23 07:36 Pulse Ox 96 06/13/23 07:36 FiO2 Intake & Output 06/12/23 06/13/23 06/13/23 18:59 06:59 18:59 Intake Total 1101 Output Total 495 700 Balance 606 -700 Weight 68.039 kg Intake: IV 1101 Output: Urine 430 700 Estimated Blood Loss 65 Other: Voiding Method Indwelling Catheter Indwelling Catheter - Labs CBC & Chem 7: 06/13/23 05:44 06/13/23 05:44 Labs: Abnormal Lab Results - Last 24 Hours (Table) 06/12/23 06/12/23 06/13/23 Range/Units 05:22 05:22 05:44 WBC 11.75 H (4.50-10.00) X 10*3/uL RBC 3.75 L 3.42 L (4.10-5.20) X 10*6/uL Hgb 11.4 L 10.6 L (12.0-15.0) g/dL Hct 35.0 L 31.4 L (37.2-46.3) % Plt Count 127 L (140-440) X 10*3/uL Immature Gran # 0.07 H (0.00-0.04) X 10*3/uL Neutrophils # 9.32 H (1.80-7.70) X 10*3/uL Potassium 3.2 L (3.5-5.5) mmol/L Anion Gap 13.10 H (4.00-12.00) mmol/L Calcium 8.4 L (8.7-10.3) mg/dL
--- NOTE | 2023-06-13 22:00 | EEG ---
ELECTROENCEPHALOGRAM REPORT CLINICAL HISTORY: This is a 68-year-old woman with fall and loss of consciousness. The video EEG is obtained to evaluate for seizure epileptiform activity. RELEVANT MEDICATION: The patient is not on any antiepileptic drugs. EEG TYPE: This is a routine 21-channel EEG with video using the 10/20 electrode placement system. DESCRIPTION: Wakefulness is obtained. During awake state, the posterior-dominant rhythm consists of [id number] voltage of 11 hertz activity. There was no physiological stage 2 sleep architecture. There is no focal slowing. Interictal and ictal, there is no seizure activity. There is sharp contoured activity over the left frontal and was felt due to artifact. ACTIVATION PROCEDURE: Photic stimulation did not evoke a posterior driving response. There is no abnormality during the photic stimulation. CLINICAL INTERPRETATION: The background is normal. There is no seizure noted during the study. There is no focal slowing. There is sharply contoured activity over the left frontal and is felt artifact. Consider repeating EEG. Clinical correlation is recommended. MMJUANITO / IJN: [id number] / JANES
[2023-06-14] MEDS: PANTOPRAZOLE SODIUM 40 MG GRANULE PKT PO SCH (07:04)
[2023-06-14 11:12] LABS: Blood Urea Nitrogen 8.1 mg/dL (9.0-27.0); Calcium 8.2 mg/dL (8.7-10.3); Carbon Dioxide 27.2 mmol/L (21.6-31.8); Chloride 98 mmol/L (96-109); Glucose 97 mg/dL (70-110); Magnesium 1.5 mg/dL (1.5-2.4); Potassium 3.4 mmol/L (3.5-5.5); Sodium 135 mmol/L (135-145)
--- NOTE | 2023-06-14 12:25 | P.PN ---
Subjective Progress Note Date: 06/14/23 Principal diagnosis: left femoral neck fracture patient examined today at bedside, she is resting comfortably. Urinary catheter was removed yesterday, patient has been urinating with no issues. Pain is well- controlled. Patient is still very hesitant with stairs, she does have multiple stairs to get into her apartment. Patient is still very adamant on being discharged home. She denies headaches, lightheadedness, chest pain or shortness of breath. Objective - Vital Signs Vital signs: Vital Signs Temp 99.2 F 06/13/23 19:44 Pulse 109 H 06/13/23 19:44 Resp 16 06/13/23 19:44 BP 127/69 06/13/23 19:44 Pulse Ox 98 06/13/23 19:44 FiO2 Intake & Output 06/13/23 06/14/23 06/14/23 18:59 06:59 18:59 Output Total 400 Balance -400 Output: Urine 400 Other: Voiding Method Indwelling Catheter Toilet # Voids 1 - Exam Left lower extremity: Incision is clean, dry, and intact. The foam dressing is in good condition. There is minimal soft tissue swelling and ecchymosis surrounding the medial and lateral aspects of the incision. Calf is soft, no tenderness with palpation. Plantar flexion, dorsiflexion, EHL, FHL are intact. Sensory exam to light touch throughout the extremity is intact, dorsal pedis pulses 2+. - Labs CBC & Chem 7: 06/13/23 05:44 06/14/23 05:45 Labs: Abnormal Lab Results - Last 24 Hours (Table) 06/14/23 Range/Units 05:45 Potassium 3.4 L (3.5-5.5) mmol/L BUN 8.1 L (9.0-27.0) mg/dL Calcium 8.2 L (8.7-10.3) mg/dL Assessment and Plan Assessment: Postoperative day #2 status post direct anterior left total hip arthroplasty Status post fall after alcohol intoxication Complex left ear laceration Rhabdomyolysis Other medical comorbidities Plan: pain control, recommend trying to not utilize IV pain medication and utilize oral medication DVT prophylaxis, continue heparin 5000 units every 12 hours PT/OT evaluation after surgery other medical specialty recommendations appreciated continue to follow during hospital stay Time with Patient: Less than 30
[2023-06-14] MEDS: HYDROcodone/APAP 5-325MG 1 EACH TAB PO PRN (12:34)
[2023-06-14] MEDS: POTASSIUM CHLORIDE ER 20 MEQ TAB.ER PO SCH (12:36)
--- NOTE | 2023-06-14 13:09 | P.PN ---
Subjective Progress Note Date: 06/14/23 CHIEF COMPLAINT: Fall HISTORY OF PRESENT ILLNESS: Patient status post left hip arthroplasty with orthopedic service and left ear surgery with ENT service yesterday. Patient did work with physical therapy yesterday. She is having flatus. Denies any difficulty urinating. She reports that her pain in the left leg is tolerable. She does complain of some swelling in that left leg. Denies any pain in her ear. Denies any nausea or vomiting. Tolerating diet. k 3.4 mg 1.5 PHYSICAL EXAM: VITAL SIGNS: Reviewed. GENERAL: Well-developed in no acute distress. HEENT: Ear incision clean dry and intact. Nontender ABDOMEN: Soft. Nondistended. Nontender. NEUROLOGIC: Alert and oriented. Cranial nerves II through XII grossly intact. Extremities: Surgical dressing left hip. Swelling of leg noted at incision site ASSESSMENT: 1. Fall 2. Left femoral neck fracture 3. Left ear laceration 4. Daily alcohol use 5. Hypokalemia and hypomagnesemia PLAN: -Continue to work with PT OT -Continue pain management -Possible ECF placement at discharge -Magnesium and potassium being replaced -DVT prophylaxis Lovenox and GI prophylaxis Protonix Physician Associate Project Manager note has been reviewed by physician. Signing provider agrees with the documented findings, assessment, and plan of care. Objective - Vital Signs Vital signs: Vital Signs Temp 99.2 F 06/13/23 19:44 Pulse 109 H 06/13/23 19:44 Resp 16 06/13/23 19:44 BP 127/69 06/13/23 19:44 Pulse Ox 98 06/13/23 19:44 FiO2 Intake & Output 06/13/23 06/14/23 06/14/23 18:59 06:59 18:59 Output Total 400 Balance -400 Output: Urine 400 Other: Voiding Method Indwelling Catheter Toilet # Voids 1 - Labs CBC & Chem 7: 06/13/23 05:44 06/14/23 05:45 Labs: Abnormal Lab Results - Last 24 Hours (Table) 06/14/23 Range/Units 05:45 Potassium 3.4 L (3.5-5.5) mmol/L BUN 8.1 L (9.0-27.0) mg/dL Calcium 8.2 L (8.7-10.3) mg/dL
[2023-06-14] MEDS: MAGNESIUM SULFATE-D5W PMX 1 GM in DEXTROSE/WATER 1 100ML.BAG IVPB SCH (14:21)
--- NOTE | 2023-06-14 17:08 | P.PN ---
Subjective Progress Note Date: 06/14/23 I am seeing the patient for the first time. Please refer to Dr. Alejandro's notes for further details.since the patient had a fall with loss of consciousness. Patient states she drinks alcohol sporadically what and when she drinks she tracks heavily. She states she can drink 2 weeks without any alcohol without any issues and does not go on withdrawal. It seems that she had a fall with loss of consciousness. She denies any history of seizures. She denies any currently any headache nausea vomiting. Objective - Vital Signs Vital signs: Vital Signs Temp 98.8 F 06/14/23 14:31 Pulse 90 06/14/23 14:31 Resp 17 06/14/23 14:31 BP 113/70 06/14/23 14:31 Pulse Ox 96 06/14/23 14:31 FiO2 Intake & Output 06/13/23 06/14/23 06/14/23 18:59 06:59 18:59 Intake Total 240 Output Total 400 Balance -400 240 Intake: Oral 240 Output: Urine 400 Other: Voiding Method Indwelling Catheter Toilet Toilet # Voids 1 - Exam General: Lying in bed and is not in acute distress. Neuro: The patient is awake, alert, oriented to self, place and time. Is following simple commands. No aphasia or neglect. Pupils are round, equal and reactive to light. Pupils are 3mm bilaterally. Visual li are full to confrontation. EOM intact and no nystagmus. No facial weakness. No dysarthria. Motor: Strength is lifting uppers above gravity equally. Lowers limited because of pain. - Labs CBC & Chem 7: 06/13/23 05:44 06/14/23 05:45 Labs: Abnormal Lab Results - Last 24 Hours (Table) 06/14/23 Range/Units 05:45 Potassium 3.4 L (3.5-5.5) mmol/L BUN 8.1 L (9.0-27.0) mg/dL Calcium 8.2 L (8.7-10.3) mg/dL Assessment and Plan Assessment: * Status post unwitnessed fall with loss of consciousness. Patient states that she was drinking alcohol and blacked out and woke up on the floor. Rule out alcoholic blackout versus withdrawal seizure. Patient voluntarily did not call ambulance and stayed home for couple days before calling the ambulance. * Left hip fracture due to fall. Status post total left hip arthroplasty 06/12/2023. * Transection of the left ear due to the fall. Status post repair 06/12/2023. * Elevated blood pressures, possible hypertension. * Alcoholism * Tobacco use Plan: * EEG: Showed artifact over the left frontal and during study there is sharp activity over the left frontal. No seizure. * I will get a repeat EEG. * Carotid Doppler revealed moderate atherosclerotic changes without hemodynamically significant stenosis in either ICA. Antegrade flow in both vertebral arteries. * Thiamine, folate, multivitamins. * Patient is status post left hip arthroplasty and left auricular repair. * Patient counseled about abstinence from alcohol and tobacco use. * Patient informed of [place] state law of no driving unless free of syncopal spells/seizures for 6 months. She should avoid climbing ladders, operating dangerous machineries or unsupervised swimming. * Urine drug screen positive for marijuana and opiate. * patient was notified because of the [place] DMV because of her syncopal episode, to avoid driving for 6 month until further episodes, avoid heights, avoid swimming unassisted or use heavy machinery. * recommend the patient to follow-up with a neurologist as an outpatient within 2 weeks. Time with Patient: Less than 30
--- NOTE | 2023-06-14 17:55 | CT ---
EXAMINATION TYPE: CT brain wo con DATE OF EXAM: 06/14/2023 COMPARISON: NONE HISTORY: admitted for fall, increased weakness CT DLP: 1121.[address] of the brain was performed. The ventricles, basal cisterns and sulci overlying the cerebral convexities demonstrate mild enlargem ent. There is no evidence for intracranial hemorrhage or sulcal effacement. There is decreased attenuation about the periventricular white matter and deep white matter of both c erebral hemispheres, compatible with chronic small vessel ischemia. Differential diagnosis does inclu de demyelination. No mass effects are seen.No midline shift. Osseous calvarium is intact. If symptoms persist consider MRI. IMPRESSION: 1. Age related atrophic and chronic small vessel ischemic change without acute intracranial process s een at this time.
--- NOTE | 2023-06-14 20:11 | P.PN ---
Subjective Progress Note Date: 06/14/23 This is a 68-year-old female who presented to the emergency department via EMS at another facility and transferred here for traumatic injury. Patient reports she had been drinking heavily and had a fall and was out for approximately 2 days. Patient sent here for further evaluation including multiple traumas with the left hip and ankle fracture. Patient was admitted to general surgery with orthopedics and medicine on consult for medical management. Patient with a past medical history of chronic alcohol use and dependence with continued nicotine dependence, anxiety, depression, panic disorder. Patient reports she follows with Dr. Biswas in the outpatient setting. Patient at an outside facility was noted to have a medial malleolar fracture on the left as well as a left impacted femoral neck fracture with a complicated laceration over the left ear and also acute rhabdomyolysis. CT of the chest abdomen pelvis were done showing no evidence of traumatic injury to the chest or abdominal visceral with a noted left femoral neck fracture and hepatic steatosis EKG showed sinus tachycardia. 06/11/2023 Patient evaluated in follow up today on the medical floor. Continues to report pain to the left hip and leg. Plans for surgical repair of the left femur fracture as well as the left ear laceration tomorrow. Patient remains on CIWA with concern for impending alcohol withdrawal. She is feeling naseaus today and receiving zofran. CK level has been repeated and improving down to 1019. Neurology on consultation and recommending EEG. 06/12/2023 Patient is evaluated in follow up today. She is taken to the OR for repair of the left hip fracture and also repair of the left ear laceration. Not currently requiring any ativan with no signs for acute alcohol withdrawal at this time we will discontinue the CIWA protocol. Labs come back today potassium 3.2, magnesium 1.5. 06/13/2023 Patient is seen and evaluated in follow-up today underwent left hip arthroplasty as well as left ear laceration repair with ENT. Patient to work with physical therapy and recommend daily as patient reports she wants to go home. Patient does not want to go to rehab. Will discuss further with case management regarding discharge planning. Electrolytes replaced per protocol and improved will follow-up with repeat labs. Patient is afebrile with no reported chest pain or shortness of breath. Patient tolerating diet and continues with occasional nausea with no vomiting. Recommend to continue with bowel regimen and limiting narcotic use if possible. Patient may likely benefit from ECF although patient reports she has help and would like to go home. 06/14/2023 Patient is seen and evaluated in follow-up currently sitting up in the chair reports was able to work with physical therapy into the chair. Patient has reported improvement in hip pain. Patient is status post ENT evaluation with laceration repair of the left ear and swelling is improving with no significant drainage or redness noted. Patient is able to get up with a walker with assistance by me personally today as patient continues with an IV pole on IV hydration. Patient is eating and drinking with no difficulties and Landeros catheter was removed and patient is voiding. Awaiting a bowel movement and will continue with bowel regimen. Will discontinue IV fluids and follow-up on repeat labs. Patient is afebrile with no reports of chest pain or shortness of breath. Patient tolerating diet with no reported nausea or vomiting. Patient will likely be going home with home care. Review of Systems Constitutional: Denied any fatigue denied any fever. Cardio vascular: denied any chest pain, palpitations Gastrointestinal: denied any nausea, vomiting, diarrhea, reports passing gas but no bowel movement as of yet Pulmonary: Denied any shortness of breath cough Neurologic denied any new focal deficits, reports continued left hip pain although feels is improving All inpatient medications were reviewed and appropriate changes in these medications as dictated in the interval history and assessment and plan. PHYSICAL EXAMINATION: GENERAL: The patient is alert and oriented x3, not in any acute distress. Well developed, well nourished. Less anxious HEENT: Pupils are round and equally reacting to light. EOMI. No scleral icterus. No conjunctival pallor. Normocephalic, atraumatic. No pharyngeal erythema. No thyromegaly. CARDIOVASCULAR: S1 and S2 present. No murmurs, rubs, or gallops. PULMONARY: Chest is clear to auscultation, no wheezing or crackles. ABDOMEN: Soft, nontender, nondistended, normoactive bowel sounds. No palpable organomegaly. MUSCULOSKELETAL: No joint swelling or deformity. EXTREMITIES: No cyanosis, clubbing, or pedal edema. Left surgical hip site is dry and intact with some minimal swelling of the left hip although soft and palpable NEUROLOGICAL: Gross neurological examination did not reveal any focal deficits. Diffusely weak SKIN: No rashes. Laceration with multiple sutures noted on the left lower Assessment: Acute alcohol intoxication resulting in a fall with a displaced left subcapital femur fracture, status post left hip arthroplasty Recent left ankle avulsion and fracture of the medial malleolus Complex left ear laceration, status post suture repair with ENT Chronic alcohol abuse Acute rhabdomyolysis from a fall, patient reports she was down almost 2 days Continued ongoing nicotine dependence Elevated LFTs likely secondary to daily alcohol use, trending down Hypertension GI prophylaxis DVT prophylaxis Full code Plan: Patient admitted under surgery services for trauma and noted to have an impacted left femur fracture status post left hip repair ENT has evaluated the patient for complicated left ear laceration secondary to the fall recommending debridement and repair of the laceration. Status post laceration repair Patient is eating and drinking with no difficulties will discontinue IV hydration and follow-up on repeat labs. Replace electrolytes per protocol as potassium and magnesium were slightly low. Continued pain management per orthopedics as well as general surgery, recommend bowel regimen and limiting IV narcotic use Continue antiemetics as needed Recommend PT/OT therapy daily as patient is improving significantly each day. Patient would benefit from home with home care Case management/social work following working on discharge planning with home with home care versus the need for possible ECF for rehab. We will continue to follow with surgery during hospitalization. Thank you kindly for this consultation. The impression and plan of care has been dictated by Adriana savage, Nurse Practitioner as directed. Dr. Mónica MD I have performed a history and physical examination and medical decision making of this patient, discussed the same with the dictator, and agree with the dictators assessment and plan as written, documented as a scribe. Based on total visit time, I have performed more than 50% of this visit. Objective - Vital Signs Vital signs: Vital Signs Temp 98.8 F 06/14/23 14:31 Pulse 90 06/14/23 14:31 Resp 17 06/14/23 14:31 BP 113/70 06/14/23 14:31 Pulse Ox 96 06/14/23 14:31 FiO2 Intake & Output 06/14/23 06/14/23 06/15/23 06:59 18:59 06:59 Intake Total 240 Balance 240 Intake: Oral 240 Other: Voiding Method Toilet Toilet # Voids 1 2 - Labs CBC & Chem 7: 06/13/23 05:44 06/14/23 05:45 Labs: Abnormal Lab Results - Last 24 Hours (Table) 06/14/23 Range/Units 05:45 Potassium 3.4 L (3.5-5.5) mmol/L BUN 8.1 L (9.0-27.0) mg/dL Calcium 8.2 L (8.7-10.3) mg/dL
--- NOTE | 2023-06-15 01:03 | EEG ---
ELECTROENCEPHALOGRAM REPORT RELEVANT MEDICATIONS: The patient is not on any antiepileptic drugs. EEG TYPE: This is a routine 21-channel EEG with video using the 10/20 electrode placement system. DESCRIPTION: Wakefulness and drowsiness are obtained. During awake state, the posterior- dominant rhythm consists of 9.5 to 10.5 hertz activity that is well modulated and well sustained. There is no physiological stage 2 sleep architecture. There is no focal slowing. Interictal and ictal, there appears to be sharply contoured activity over the F3, but that appears more artifact. Otherwise, there is no highly suspicious epileptiform discharges and no seizure noted during the study. ACTIVATION PROCEDURE: Photic stimulation did not evoke a posterior driving response. There is no abnormality during the photic stimulation. Hyperventilation is not performed. CLINICAL INTERPRETATION: This is a normal routine EEG. There is no focal slowing, seizure. There appears to be sharply contoured activity over F3 but appears artificat. Clinical correlation is recommended. MMJUANITO / CRISTHIAN: [id number] / MTDD
[2023-06-15 08:48] LABS: Basophils # (A) 0.03 X 10*3/uL (0.00-0.10); Basophils % (A) 0.3 %; Eosinophils # (A) 0.44 X 10*3/uL (0.04-0.35); Eosinophils % (A) 4.7 %; HCT 26.4 % (37.2-46.3); HGB 8.7 g/dL (12.0-15.0); Lymphocytes # (A) 1.68 X 10*3/uL (0.90-5.00); Lymphocytes % (A) 17.9 %; MCH 30.7 pg (27.0-32.0); MCV 93.3 FL (80.0-97.0); Mean Platelet Volume 10.2 FL (9.5-12.2); Monocytes # (A) 1.22 X 10*3/uL (0.20-1.00); NRBC Per 100 WBC 0 X 10*3/uL (0.00-0.01); Neutrophils # (A) 5.97 X 10*3/uL (1.80-7.70); Neutrophils % (A) 63.8 %; Platelet Count 136 X 10*3/uL (140-440); RBC 2.83 X 10*6/uL (4.10-5.20); RDW 14.7 % (11.5-14.5); WBC 9.37 X 10*3/uL (4.50-10.00)
--- NOTE | 2023-06-15 11:32 | US ---
EXAMINATION TYPE: US venous doppler duplex LE LT DATE OF EXAM: 06/15/2023 10:57 AM COMPARISON: NONE CLINICAL INDICATION: Female, 68 years old with history of left leg swelling, recent surgery; post op hip surgery SIDE PERFORMED: Left TECHNIQUE: The lower extremity deep venous system is examined utilizing real time linear array sonog noel with graded compression, doppler sonography and color-flow sonography. VESSELS IMAGED: Common Femoral Vein Deep Femoral Vein Greater Saphenous Vein * Femoral Vein Popliteal Vein Small Saphenous Vein * Proximal Calf Veins (* superficial vessels) Left Leg: Negative for DVT IMPRESSION: Grayscale, color doppler, spectral doppler imaging performed of the deep veins of the lo wer extremities. There is normal flow, compressibility, vascular waveforms.
--- NOTE | 2023-06-15 12:30 | P.PN ---
Subjective Progress Note Date: 06/15/23 CHIEF COMPLAINT: Fall HISTORY OF PRESENT ILLNESS: Patient status post left hip arthroplasty with orthopedic service and left ear surgery with ENT service. Patient sitting up in bedside chair. She is complaining of left leg swelling. Also complain of constipation. She denies any nausea or vomiting. She is tolerating diet. She has worked with physical therapy. Afebrile. WBC 9.37 Hgb 8.7 PHYSICAL EXAM: VITAL SIGNS: Reviewed. GENERAL: Well-developed in no acute distress. HEENT: Ear incision clean dry and intact. Nontender ABDOMEN: Soft. Nondistended. Nontender. NEUROLOGIC: Alert and oriented. Cranial nerves II through XII grossly intact. Extremities: Surgical dressing left hip. Swelling of leg noted at incision site ASSESSMENT: 1. Fall 2. Left femoral neck fracture 3. Left ear laceration 4. Daily alcohol use 5. Hypokalemia and hypomagnesemia PLAN: -Venous Doppler of left leg ordered for left leg swelling. Negative for DVT -MiraLAX added for constipation -Continue to work with PT OT -Continue pain management -Discharge plan is home with home care -Possible discharge tomorrow -DVT prophylaxis Lovenox and GI prophylaxis Protonix Physician Corporate [employer] Specialist note has been reviewed by physician. Signing provider agrees with the documented findings, assessment, and plan of care. Objective - Vital Signs Vital signs: Vital Signs Temp 98.7 F 06/15/23 08:00 Pulse 103 H 06/15/23 08:00 Resp 17 06/15/23 08:00 BP 120/65 06/15/23 08:00 Pulse Ox 95 06/15/23 08:00 FiO2 Intake & Output 06/14/23 06/15/23 06/15/23 18:59 06:59 18:59 Intake Total 240 Balance 240 Intake: Oral 240 Other: Voiding Method Toilet # Voids 2 1 - Labs CBC & Chem 7: 06/15/23 04:50 06/14/23 05:45 Labs: Abnormal Lab Results - Last 24 Hours (Table) 06/15/23 Range/Units 04:50 RBC 2.83 L (4.10-5.20) X 10*6/uL Hgb 8.7 L (12.0-15.0) g/dL Hct 26.4 L (37.2-46.3) % RDW 14.7 H (11.5-14.5) % Plt Count 136 L (140-440) X 10*3/uL Monocytes # 1.22 H (0.20-1.00) X 10*3/uL Eosinophils # 0.44 H (0.04-0.35) X 10*3/uL
[2023-06-15] MEDS: polyethylene glycoL 3350 17 GM POWD.PACK PO SCH (12:44)
--- NOTE | 2023-06-15 16:57 | P.PN ---
Subjective Progress Note Date: 06/15/23 I am following-up with patient and she denies of any further loss of consciousness. No syncopal episodes or seizures. She states as child had head injury on bilateral frontal. Objective - Vital Signs Vital signs: Vital Signs Temp 98.1 F 06/15/23 14:35 Pulse 88 06/15/23 14:35 Resp 18 06/15/23 14:35 BP 108/59 06/15/23 14:35 Pulse Ox 96 06/15/23 14:35 FiO2 Intake & Output 06/14/23 06/15/23 06/15/23 18:59 06:59 18:59 Intake Total 240 Balance 240 Intake: Oral 240 Other: Voiding Method Toilet # Voids 2 1 - Exam General: Lying in bed and is not in acute distress. Neuro: The patient is awake, alert, oriented to self, place and time. Is following simple commands. No aphasia or neglect. Pupils are round, equal and reactive to light. Pupils are 3mm bilaterally. Visual li are full to confrontation. EOM intact and no nystagmus. No facial weakness. No dysarthria. Motor: Strength is lifting uppers above gravity equally. Lowers limited because of pain. - Labs CBC & Chem 7: 06/15/23 04:50 06/14/23 05:45 Labs: Abnormal Lab Results - Last 24 Hours (Table) 06/15/23 Range/Units 04:50 RBC 2.83 L (4.10-5.20) X 10*6/uL Hgb 8.7 L (12.0-15.0) g/dL Hct 26.4 L (37.2-46.3) % RDW 14.7 H (11.5-14.5) % Plt Count 136 L (140-440) X 10*3/uL Monocytes # 1.22 H (0.20-1.00) X 10*3/uL Eosinophils # 0.44 H (0.04-0.35) X 10*3/uL Assessment and Plan Assessment: * Status post unwitnessed fall with loss of consciousness. Patient states that she was drinking alcohol and blacked out and woke up on the floor. Rule out alcoholic blackout versus withdrawal seizure. Patient voluntarily did not call ambulance and stayed home for couple days before calling the ambulance. On EEG shows sharply contoured activity over the left frontal and felt more artifact. * Left hip fracture due to fall. Status post total left hip arthroplasty 06/12/2023. * Transection of the left ear due to the fall. Status post repair 06/12/2023. * Elevated blood pressures, possible hypertension. * Alcoholism * Tobacco use Plan: * EEG: Showed artifact over the left frontal and during study there is sharp activity over the left frontal. No seizure. * Repeat EEG: Is normal. There is no focal slowing, clear epileptiform discharge or seizure on the EEG. There appears to be sharply contour activity over the F3 and appear more artifact. 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 I notified her that I can start her on antiepileptic drug as preventive but she declined. * Carotid Doppler revealed moderate atherosclerotic changes without hemodynamically significant stenosis in either ICA. Antegrade flow in both vertebral arteries. * CT brain: Is age related atrophic and chronic small vessel ischemic change without acute intracranial process seen at this time. * Thiamine, folate, multivitamins. * Patient is status post left hip arthroplasty and left auricular repair. * Patient counseled about abstinence from alcohol and tobacco use. * Patient informed of [place] state law of no driving unless free of syncopal spells/seizures for 6 months. She should avoid climbing ladders, operating d angerous machineries or unsupervised swimming. * Urine drug screen positive for marijuana and opiate. * patient was notified because of the [place] DMV because of her syncopal episode, to avoid driving for 6 month until further episodes, avoid heights, avoid swimming unassisted or use heavy machinery. * recommend the patient to follow-up with a neurologist as an outpatient within 2 weeks. Otherwise no additional neurological work-up. Please notify neurology team if any further concerns. Time with Patient: Less than 30
--- NOTE | 2023-06-16 05:51 | P.PN ---
Subjective Progress Note Date: 06/15/23 This is a 68-year-old female who presented to the emergency department via EMS at another facility and transferred here for traumatic injury. Patient reports she had been drinking heavily and had a fall and was out for approximately 2 days. Patient sent here for further evaluation including multiple traumas with the left hip and ankle fracture. Patient was admitted to general surgery with orthopedics and medicine on consult for medical management. Patient with a past medical history of chronic alcohol use and dependence with continued nicotine dependence, anxiety, depression, panic disorder. Patient reports she follows with Dr. Biswas in the outpatient setting. Patient at an outside facility was noted to have a medial malleolar fracture on the left as well as a left impacted femoral neck fracture with a complicated laceration over the left ear and also acute rhabdomyolysis. CT of the chest abdomen pelvis were done showing no evidence of traumatic injury to the chest or abdominal visceral with a noted left femoral neck fracture and hepatic steatosis EKG showed sinus tachycardia. 06/11/2023 Patient evaluated in follow up today on the medical floor. Continues to report pain to the left hip and leg. Plans for surgical repair of the left femur fracture as well as the left ear laceration tomorrow. Patient remains on CIWA with concern for impending alcohol withdrawal. She is feeling naseaus today and receiving zofran. CK level has been repeated and improving down to 1019. Neurology on consultation and recommending EEG. 06/12/2023 Patient is evaluated in follow up today. She is taken to the OR for repair of the left hip fracture and also repair of the left ear laceration. Not currently requiring any ativan with no signs for acute alcohol withdrawal at this time we will discontinue the CIWA protocol. Labs come back today potassium 3.2, magnesium 1.5. 06/13/2023 Patient is seen and evaluated in follow-up today underwent left hip arthroplasty as well as left ear laceration repair with ENT. Patient to work with physical therapy and recommend daily as patient reports she wants to go home. Patient does not want to go to rehab. Will discuss further with case management regarding discharge planning. Electrolytes replaced per protocol and improved will follow-up with repeat labs. Patient is afebrile with no reported chest pain or shortness of breath. Patient tolerating diet and continues with occasional nausea with no vomiting. Recommend to continue with bowel regimen and limiting narcotic use if possible. Patient may likely benefit from ECF although patient reports she has help and would like to go home. 06/14/2023 Patient is seen and evaluated in follow-up currently sitting up in the chair reports was able to work with physical therapy into the chair. Patient has reported improvement in hip pain. Patient is status post ENT evaluation with laceration repair of the left ear and swelling is improving with no significant drainage or redness noted. Patient is able to get up with a walker with assistance by me personally today as patient continues with an IV pole on IV hydration. Patient is eating and drinking with no difficulties and Landeros catheter was removed and patient is voiding. Awaiting a bowel movement and will continue with bowel regimen. Will discontinue IV fluids and follow-up on repeat labs. Patient is afebrile with no reports of chest pain or shortness of breath. Patient tolerating diet with no reported nausea or vomiting. Patient will likely be going home with home care. 06/15/2023 Patient is seen and evaluated in follow-up today for medical consultations following. Patient also being followed by neurology underwent repeat EEG which showed no epileptiform discharges and most likely artifact although recommending outpatient neurology follow-up. Discussed initiating antiseizure medication although patient is declining. Patient is tearful she has increased amounts of pain and left lower extremity swelling and underwent a Doppler to rule out DVT. Patient is maintained on subcutaneous Lovenox DVT prophylaxis. Encouraged elevating the lower extremity and icing. Patient has been up more frequently wh ich could contribute to some of the swelling. Surgical site appears dry and intact with no significant redness or any drainage noted. Patient is afebrile denies chest pain or shortness of breath. Patient tolerating diet with no reported nausea or vomiting. Review of Systems Constitutional: Denied any fatigue denied any fever. Reports to feeling anxious Cardio vascular: denied any chest pain, palpitations Gastrointestinal: denied any nausea, vomiting, diarrhea, reports passing gas but no bowel movement as of yet Pulmonary: Denied any shortness of breath cough Neurologic denied any new focal deficits, reports continued left hip pain with some left lower extremity swelling All inpatient medications were reviewed and appropriate changes in these medications as dictated in the interval history and assessment and plan. PHYSICAL EXAMINATION: GENERAL: The patient is alert and oriented x3, anxious and tearful on exam. Well developed, well nourished. HEENT: Pupils are round and equally reacting to light. EOMI. No scleral icterus. No conjunctival pallor. Normocephalic, atraumatic. No pharyngeal erythema. No thyromegaly. CARDIOVASCULAR: S1 and S2 present. No murmurs, rubs, or gallops. PULMONARY: Chest is clear to auscultation, no wheezing or crackles. ABDOMEN: Soft, nontender, nondistended, normoactive bowel sounds. No palpable organomegaly. MUSCULOSKELETAL: No joint swelling or deformity. EXTREMITIES: No cyanosis, clubbing, or pedal edema. Left surgical hip site is dry and intact with some minimal swelling of the left hip although soft and palpable. Increased swelling of the lower extremity NEUROLOGICAL: Gross neurological examination did not reveal any focal deficits. Diffusely weak SKIN: No rashes. Laceration with multiple sutures noted on the left lower Assessment: Acute alcohol intoxication resulting in a fall with a displaced left subcapital femur fracture, status post left hip arthroplasty Recent left ankle avulsion and fracture of the medial malleolus Left lower extremity swelling, ruled out DVT on Doppler Complex left ear laceration, status post suture repair with ENT Chronic alcohol abuse Acute rhabdomyolysis from a fall, patient reports she was down almost 2 days Continued ongoing nicotine dependence Elevated LFTs likely secondary to daily alcohol use, trending down Hypertension GI prophylaxis DVT prophylaxis subcutaneous Lovenox Full code Plan: Patient admitted under surgery services for trauma and noted to have an impacted left femur fracture status post left hip repair. Patient reporting some increased pain extremity Doppler was obtained which was negative for DVT. Patient is continued on Lovenox for DVT prophylaxis. ENT has evaluated the patient for complicated left ear laceration secondary to the fall recommending debridement and repair of the laceration. Status post laceration repair Patient is eating and drinking with no difficulties will discontinue IV hydration and repeat labs. Replace electrolytes per protocol as potassium and magnesium were slightly low. Continued pain management per orthopedics as well as general surgery, recommend bowel regimen and limiting IV narcotic use Continue antiemetics as needed Recommend PT/OT therapy daily as patient is improving significantly each day. Patient would benefit from home with home care Case management/social work following working on discharge planning with home with home care versus the need for possible ECF for rehab. We will continue to follow with surgery during hospitalization. Thank you kindly for this consultation. The impression and plan of care has been dictated by Adriana savage Nurse Practitioner as directed. Dr. Mónica MD I have performed a history and physical examination and medical decision making of this patient, discussed the same with the dictator, and agree with the dictators assessment and plan as written, documented as a scribe. Based on total visit time, I have performed more than 50% of this visit. Objective - Vital Signs Vital signs: Vital Signs Temp 98.7 F 06/15/23 08:00 Pulse 103 H 06/15/23 08:00 Resp 17 06/15/23 08:00 BP 120/65 06/15/23 08:00 Pulse Ox 95 06/15/23 08:00 FiO2 Intake & Output 06/14/23 06/15/23 06/15/23 18:59 06:59 18:59 Intake Total 240 Balance 240 Intake: Oral 240 Other: Voiding Method Toilet # Voids 2 1 - Labs CBC & Chem 7: 06/15/23 04:50 06/14/23 05:45 Labs: Abnormal Lab Results - Last 24 Hours (Table) 06/14/23 06/15/23 Range/Units 05:45 04:50 RBC 2.83 L (4.10-5.20) X 10*6/uL Hgb 8.7 L (12.0-15.0) g/dL Hct 26.4 L (37.2-46.3) % RDW 14.7 H (11.5-14.5) % Plt Count 136 L (140-440) X 10*3/uL Monocytes # 1.22 H (0.20-1.00) X 10*3/uL Eosinophils # 0.44 H (0.04-0.35) X 10*3/uL Potassium 3.4 L (3.5-5.5) mmol/L BUN 8.1 L (9.0-27.0) mg/dL Calcium 8.2 L (8.7-10.3) mg/dL
[2023-06-16 08:47] VITALS: BP 135/74; PULSE 94; TEMP 98.7
[2023-06-16 09:10] LABS: Magnesium 1.7 mg/dL (1.5-2.4)
[2023-06-16 09:13] LABS: Blood Urea Nitrogen 10.5 mg/dL (9.0-27.0); Calcium 8.5 mg/dL (8.7-10.3); Carbon Dioxide 28.5 mmol/L (21.6-31.8); Chloride 101 mmol/L (96-109); Glucose 94 mg/dL (70-110); Potassium 4.5 mmol/L (3.5-5.5); Sodium 139 mmol/L (135-145)
[2023-06-16 09:28] VITALS: RESP 16
--- NOTE | 2023-06-16 10:45 | P.PN ---
Subjective Progress Note Date: 06/16/23 Principal diagnosis: left femoral neck fracture Patient examined today at bedside, she is resting comfortably. Pain is well- controlled. Patient has continued to progress with physical therapy. She denies headaches, lightheadedness, chest pain or shortness of breath. Objective - Vital Signs Vital signs: Vital Signs Temp 98.7 F 06/16/23 07:02 Pulse 94 06/16/23 07:02 Resp 16 06/16/23 09:01 BP 135/74 06/16/23 07:02 Pulse Ox 97 06/16/23 07:02 FiO2 Intake & Output 06/15/23 06/16/23 06/16/23 18:59 06:59 18:59 Intake Total 180 Output Total 400 Balance -220 Intake: Oral 180 Output: Urine 400 Other: Voiding Method Toilet Toilet # Voids 3 2 2 - Exam Left lower extremity: Incision is clean, dry, and intact. The foam dressing is in good condition. There is minimal soft tissue swelling and ecchymosis surrounding the medial and lateral aspects of the incision. Calf is soft, no tenderness with palpation. Plantar flexion, dorsiflexion, EHL, FHL are intact. Sensory exam to light touch throughout the extremity is intact, dorsal pedis pulses 2+. - Labs CBC & Chem 7: 06/15/23 04:50 06/16/23 04:32 Labs: Abnormal Lab Results - Last 24 Hours (Table) 06/16/23 Range/Units 04:32 Calcium 8.5 L (8.7-10.3) mg/dL Assessment and Plan Assessment: Postoperative day #4 status post direct anterior left total hip arthroplasty Status post fall after alcohol intoxication Complex left ear laceration Rhabdomyolysis Other medical comorbidities Plan: Pain control, plan for discharge home with Ong. Patient has stool softeners already at home DVT prophylaxis, aspirin 81 mg twice a day for 30 days Home health services after discharge other medical specialty recommendations appreciated Orthopedically stable for discharge home today Time with Patient: Less than 30
--- NOTE | 2023-06-16 16:41 | P.DS ---
Providers Date of admission: 06/10/23 06:30 Expected date of discharge: 06/16/23 Attending physician: Carlos Pena Consults: 06/10/23 06:30 Consult Physician Routine Consulting Provider: Ismael Colon Consult Reason/Comments: complicated ear lac Do you want consulting provider notified?: Already Contacted Consult Physician Routine Consulting Provider: Aldo Powell Consult Reason/Comments: left hip and ankle fx Do you want consulting provider notified?: Already Contacted Consult Physician Urgent Consulting Provider: Raz Mai Consult Reason/Comments: medical management Do you want consulting provider notified?: Yes 06/10/23 12:35 Consult Physician Routine Consulting Provider: Villa Iglesias Consult Reason/Comments: trauma, fall, doesn't remember event Do you want consulting provider notified?: Yes Primary care physician: [facility] Course: Discharge diagnosis 1. Fall 2. Left femoral neck fracture 3. Left ear laceration 4. Daily alcohol use 5. Hypokalemia and hypomagnesemia improved Hospital course This is a 68-year-old female who was a transfer from [facility] to [facility] for left hip fracture. Patient had been drinking heavily and appears she passed out and fell. She was found to have a left hip fracture and a complicated laceration of the left ear. Patient was taken to surgery by orthopedic service for the left femoral neck fracture. Patient tolerated surgery well. She has worked with physical therapy. She is ambulating. Her pain is controlled. She was also seen by ENT service who sutured the left ear laceration. Patient's pain is controlled she is afebrile. She is tolerating diet. She has been cleared by all consulting physicians. She is stable for discharge. Please refer to chart for any further details. Physician Mechanical Engineering Advisor note has been reviewed by physician. Signing provider agrees with the documented findings, assessment, and plan of care. Patient Condition at Discharge: Stable Plan - Discharge Summary Discharge Rx Participant: Yes New Discharge Prescriptions: New Aspirin [Adult Low Dose Aspirin EC] 81 mg PO BID #60 tab HYDROcodone/APAP 7.5-325MG [[place] 7.5] 1 each PO Q6HR PRN #28 tab PRN Reason: Pain Docusate [Colace] 100 mg PO BID #30 capsule Discharge Medication List Aspirin [Adult Low Dose Aspirin EC] 81 mg PO BID #60 tab 06/16/23 [Rx] Docusate [Colace] 100 mg PO BID #30 capsule 06/16/23 [Rx] HYDROcodone/APAP 7.5-325MG [[place] 7.5] 1 each PO Q6HR PRN #28 tab 06/16/23 [Rx] Follow up Appointment(s)/Referral(s): [facility], [NON-STAFF] - As Needed Abhishek Price PAC [PHYSICIAN PRINCIPAL NETWORK ENGINEER] - 06/28/23 9:00 am Veronica Biswas [Primary Care Provider] - 06/29/23 8:00 am Patient Instructions/Handouts: Hip Arthroscopy (DC) Activity/Diet/Wound Care/Special Instructions: Orthopedic Discharge Instructions: 1. Wound care and infection precautions, keep incision dry and covered while showering, no lotions, creams, moisturizers. No soaking, pools, hot tubs. Do not scrub over incision. 2. Weight-bear as tolerated with walker / cane until follow-up. 3. Ice and elevate when necessary. Do not exceed 20 minutes per hour with ice pack. 4. Utilize compression sleeve until seen at first follow up appointment. 5. Pain meds and anticoagulants per prescription. 6. Pain medication has potential to cause constipation. Increase oral fluid and fiber intake. Contact primary care provider if you have not had a bowel movement within 48 hours after discharge. 7. No anti-inflammatory medication until discussed at first post operative visit, this including Motrin, Aleve, Mobic, Diclofenac. 8. Follow up in office at 2 weeks postop with Ga Price PA-C/Guille Spence PA-C 9. Follow up with your primary care doctor 7-10 days after discharge. 10. Contact [facility] with any questions, . Wound care instructions: 1. Okay to remove surgical dressing as of 06/26/2023 2. Okay to shower directly over the incision after removal of dressing [place] law states no driving unless free of syncopal spells/ seizures for 6 months. Avoid climbing ladders, operating dangerous machines, unsupervised swimm ing. NO Driving for 6 months Please follow up with a neurologist outpatient in 2 weeks Discharge/Stand Alone Forms: AA Meetings Dist [address] 24 - [facility], AA Meetings Any [place] [facility] Facilities Discharge Disposition: HOME WITH HOME HEALTH SERVICES
--- NOTE | 2023-06-20 15:10 | P.PN ---
Subjective Progress Note Date: 06/16/23 This is a 68-year-old female who presented to the emergency department via EMS at another facility and transferred here for traumatic injury. Patient reports she had been drinking heavily and had a fall and was out for approximately 2 days. Patient sent here for further evaluation including multiple traumas with the left hip and ankle fracture. Patient was admitted to general surgery with orthopedics and medicine on consult for medical management. Patient with a past medical history of chronic alcohol use and dependence with continued nicotine dependence, anxiety, depression, panic disorder. Patient reports she follows with Dr. Biswas in the outpatient setting. Patient at an outside facility was noted to have a medial malleolar fracture on the left as well as a left impacted femoral neck fracture with a complicated laceration over the left ear and also acute rhabdomyolysis. CT of the chest abdomen pelvis were done showing no evidence of traumatic injury to the chest or abdominal visceral with a noted left femoral neck fracture and hepatic steatosis EKG showed sinus tachycardia. 06/11/2023 Patient evaluated in follow up today on the medical floor. Continues to report pain to the left hip and leg. Plans for surgical repair of the left femur fracture as well as the left ear laceration tomorrow. Patient remains on CIWA with concern for impending alcohol withdrawal. She is feeling naseaus today and receiving zofran. CK level has been repeated and improving down to 1019. Neurology on consultation and recommending EEG. 06/12/2023 Patient is evaluated in follow up today. She is taken to the OR for repair of the left hip fracture and also repair of the left ear laceration. Not currently requiring any ativan with no signs for acute alcohol withdrawal at this time we will discontinue the CIWA protocol. Labs come back today potassium 3.2, magnesium 1.5. 06/13/2023 Patient is seen and evaluated in follow-up today underwent left hip arthroplasty as well as left ear laceration repair with ENT. Patient to work with physical therapy and recommend daily as patient reports she wants to go home. Patient does not want to go to rehab. Will discuss further with case management regarding discharge planning. Electrolytes replaced per protocol and improved will follow-up with repeat labs. Patient is afebrile with no reported chest pain or shortness of breath. Patient tolerating diet and continues with occasional nausea with no vomiting. Recommend to continue with bowel regimen and limiting narcotic use if possible. Patient may likely benefit from ECF although patient reports she has help and would like to go home. 06/14/2023 Patient is seen and evaluated in follow-up currently sitting up in the chair reports was able to work with physical therapy into the chair. Patient has reported improvement in hip pain. Patient is status post ENT evaluation with laceration repair of the left ear and swelling is improving with no significant drainage or redness noted. Patient is able to get up with a walker with assistance by me personally today as patient continues with an IV pole on IV hydration. Patient is eating and drinking with no difficulties and Landeros catheter was removed and patient is voiding. Awaiting a bowel movement and will continue with bowel regimen. Will discontinue IV fluids and follow-up on repeat labs. Patient is afebrile with no reports of chest pain or shortness of breath. Patient tolerating diet with no reported nausea or vomiting. Patient will likely be going home with home care. 06/15/2023 Patient is seen and evaluated in follow-up today for medical consultations following. Patient also being followed by neurology underwent repeat EEG which showed no epileptiform discharges and most likely artifact although recommending outpatient neurology follow-up. Discussed initiating antiseizure medication although patient is declining. Patient is tearful she has increased amounts of pain and left lower extremity swelling and underwent a Doppler to rule out DVT. Patient is maintained on subcutaneous Lovenox DVT prophylaxis. Encouraged elevating the lower extremity and icing. Patient has been up more frequently wh ich could contribute to some of the swelling. Surgical site appears dry and intact with no significant redness or any drainage noted. Patient is afebrile denies chest pain or shortness of breath. Patient tolerating diet with no reported nausea or vomiting. 06/16/2023 Patient is seen and evaluated in follow-up today with family at the bedside and has been up and reports to feeling well is being scheduled for discharge. Patient did have a lower extremity Doppler that was done that was negative for DVT. Surgery working on discharge planning including home with home care. Patient is medically stable once discharged by general surgery. Recommend outpatient follow-up and complete alcohol abstinence. Review of Systems Constitutional: Denied any fatigue denied any fever. Cardio vascular: denied any chest pain, palpitations Gastrointestinal: denied any nausea, vomiting, diarrhea, reports passing gas but no bowel movement as of yet Pulmonary: Denied any shortness of breath cough Neurologic denied any new focal deficits, reports continued left hip pain with some left lower extremity swelling, pain is currently managed All inpatient medications were reviewed and appropriate changes in these medications as dictated in the interval history and assessment and plan. PHYSICAL EXAMINATION: GENERAL: The patient is alert and oriented x3, anxious and tearful on exam. Well developed, well nourished. HEENT: Pupils are round and equally reacting to light. EOMI. No scleral icterus. No conjunctival pallor. Normocephalic, atraumatic. No pharyngeal erythema. No thyromegaly. CARDIOVASCULAR: S1 and S2 present. No murmurs, rubs, or gallops. PULMONARY: Chest is clear to auscultation, no wheezing or crackles. ABDOMEN: Soft, nontender, nondistended, normoactive bowel sounds. No palpable organomegaly. MUSCULOSKELETAL: No joint swelling or deformity. EXTREMITIES: No cyanosis, clubbing, or pedal edema. Left surgical hip site is dry and intact with some minimal swelling of the left hip although soft and palpable. Increased swelling of the lower extremity NEUROLOGICAL: Gross neurological examination did not reveal any focal deficits. Diffusely weak SKIN: No rashes. Laceration with multiple sutures noted on the left lower Assessment: Acute alcohol intoxication resulting in a fall with a displaced left subcapital femur fracture, status post left hip arthroplasty Recent left ankle avulsion and fracture of the medial malleolus Left lower extremity swelling, ruled out DVT on Doppler Complex left ear laceration, status post suture repair with ENT Chronic alcohol abuse Acute rhabdomyolysis from a fall, patient reports she was down almost 2 days Continued ongoing nicotine dependence Elevated LFTs likely secondary to daily alcohol use, trending down Hypertension GI prophylaxis DVT prophylaxis subcutaneous Lovenox Full code Plan: Patient admitted under surgery services for trauma and noted to have an impacted left femur fracture status post left hip repair. Patient reporting some increased pain extremity Doppler was obtained which was negative for DVT. Patient is continued on Lovenox for DVT prophylaxis. ENT has evaluated the patient for complicated left ear laceration secondary to the fall recommending debridement and repair of the laceration. Status post laceration repair Patient is eating and drinking with no difficulties will discontinue IV hydration and repeat labs. Replace electrolytes per protocol as potassium and magnesium were slightly low. Continued pain management per orthopedics as well as general surgery, recommend bowel regimen and limiting IV narcotic use Continue antiemetics as needed Recommend PT/OT therapy daily as patient is improving significantly each day. Patient would benefit from home with home care Case management/social work following working on discharge planning with home with home care Patient is medically stable once cleared by general surgery for discharge. We will continue to follow with surgery during hospitalization. Thank you kindly for this consultation. The impression and plan of care has been dictated by Adriana savage, Nurse Practitioner as directed. Dr. Mónica MD I have performed a history and physical examination and medical decision making of this patient, discussed the same with the dictator, and agree with the dictators assessment and plan as written, documented as a scribe. Based on total visit time, I have performed more than 50% of this visit. Objective - Vital Signs Vital signs: Vital Signs Temp 98.7 F 06/16/23 07:02 Pulse 94 06/16/23 07:02 Resp 16 06/16/23 09:01 BP 135/74 06/16/23 07:02 Pulse Ox 97 06/16/23 07:02 FiO2 - Labs CBC & Chem 7: 06/15/23 04:50 06/16/23 04:32
--- NOTE | 2023-06-21 20:39 | OP ---
OPERATIVE REPORT DATE OF SERVICE : ADDENDUM: This patient underwent a debridement and complex repair of a 3.6 cm deep left posterior auricular laceration. The debridement was a removal of devitalized and necrotic cartilage and skin. We did that with the use of a scalpel blade utilizing a 15 blade. The devitalized necrotic tissue was removed with the scalpel, this was done to both opposing segments of the transection laceration. MMODL / IJN: [id number] /
== END 2023-06-16 12:16 | disposition home health service (06) | DRG 956 ==
LOC: EC 04:47 → 4SSUR 06:30
PROVIDERS: ADMIT Surgery; ATTEND Surgery
PROC: 0SRB04A Replacement of Left Hip Joint with Ceramic on Polyethylene Synthetic Substitute, Uncemented, Open Approach (ICD-10-PCS; principal; 2023-06-12 08:00)
PROC: 09Q10ZZ Repair Left External Ear, Open Approach (ICD-10-PCS; 2023-06-12 08:00)
PROC: 0HB3XZZ Excision of Left Ear Skin, External Approach (ICD-10-PCS; 2023-06-12 08:00)
DX: S72.012A Unspecified intracapsular fracture of left femur, initial encounter for closed fracture (principal); T79.6XXA Traumatic ischemia of muscle, initial encounter; S82.52XA Displaced fracture of medial malleolus of left tibia, initial encounter for closed fracture; W19.XXXA Unspecified fall, initial encounter; S01.312A Laceration without foreign body of left ear, initial encounter; F41.0 Panic disorder [episodic paroxysmal anxiety]; F32.A Depression, unspecified; R11.10 Vomiting, unspecified; F10.229 Alcohol dependence with intoxication, unspecified; F17.210 Nicotine dependence, cigarettes, uncomplicated; Y92.019 Unspecified place in single-family (private) house as the place of occurrence of the external cause; K76.0 Fatty (change of) liver, not elsewhere classified; K59.00 Constipation, unspecified; E83.42 Hypomagnesemia; E87.6 Hypokalemia; I10 Essential (primary) hypertension; R74.01 Elevation of levels of liver transaminase levels; Z88.5 Allergy status to narcotic agent
CPT/HCPCS: 36415; 70450; 71260; 73501; 74177; 80048; 80053; 80306; 80320; 82550; 83735; 84132; 85025; 85610; 85730; 86850; 86900; 86901; 93005; 93880; 95816; 96361; 96374; 99285